=== PATIENT | female | born 1935 | race Caucasian/White ===

== ENCOUNTER 2017-09-15 11:40 | Inpatient (IN) | payer MEDICARE, OTHER ==
[2017-09-15] VITALS (7 sets, daily range): BP systolic 112–135; BP diastolic 66–87; PULSE 83–96; RESP 16–18; TEMP 97.1–97.6; O2SAT 94–96
[~2017-09-15] VITALS: Ht 165.1 cm; Wt 55.0 kg
[~2017-09-15 11:40] MED LIST: ALBU25IPRN INH; ASPI81TA82 PO; BUDE.5I NEB; CALCTAB32 OR; FIORIC; FLON0.053; FLUO20; GLUC500C3 OR; LABE200 PO; LEVA750T PO; LORA-474 PO; MOTI25CH PO; MULT-65 PO; PRED5PAK PO; TIOT18I; TYLE3 PO; VIT250TA PO; Z.0.OXYGENDME NC
[2017-09-15] MEDS ORDERED: DIPH1TAB4 PO (12:15)
[2017-09-15] MEDS ORDERED: LABE200T2 PO (12:15)
[2017-09-15] MEDS ORDERED: PRIL20TA2 PO (12:15)
[2017-09-15] MEDS ORDERED: MULTTAB67 PO (12:15)
[2017-09-15] MEDS ORDERED: MECL-62 PO (12:15)
[2017-09-15] MEDS ORDERED: ASCO100029 PO (12:15)
[2017-09-15] MEDS ORDERED: FLUT1SPR5 EACH NARE (12:15)
[2017-09-15] MEDS ORDERED: [UNRECOGNIZED DRUG - CODE] PO (12:15)
[2017-09-15] MEDS ORDERED: ASPI81TA16 PO (12:15)
[2017-09-15] MEDS ORDERED: BUDE0.5S NEB (12:15)
[2017-09-15] MEDS ORDERED: SODIUM CHLORIDE 0.9% FLUSH 10 ML FLUSH IVF PRN (12:15)
[2017-09-15] MEDS ORDERED: PROZ20CA11 PO (12:15)
[2017-09-15] MEDS ORDERED: IPRASOL NEB (12:15)
[2017-09-15] MEDS ORDERED: TH C600T4 PO (12:15)
[2017-09-15] MEDS ORDERED: CALCTAB38 PO (12:17)
[2017-09-15 12:37] LABS: AUTOMATED NEUTROPHIL # 6.2 TH/MM3 (1.8-7.7); BASOPHIL % 0.3 % (0.0-2.0); EOSINOPHIL # 0.2 TH/MM3 (0-0.4); EOSINOPHIL % 2.2 % (0.0-4.0); HEMATOCRIT 34.9 % (35.0-46.0); HEMOGLOBIN 11.7 GM/DL (11.6-15.3); LYMPH % 14.1 % (9.0-44.0); LYMPHOCYTE # 1.2 TH/MM3 (1.0-4.8); MEAN CELL VOLUME 100.6 FL (80.0-100.0); MEAN CORPUSCULAR HEMOGLOBIN 33.7 PG (27.0-34.0); MEAN CORPUSCULAR HGB CONC 33.5 % (32.0-36.0); MEAN PLATELET VOLUME 7.6 FL (7.0-11.0); MONO % 7.1 % (0.0-8.0); MONOCYTE # 0.6 TH/MM3 (0-0.9); NEUT % 76.3 % (16.0-70.0); PLATELET COUNT 219 TH/MM3 (150-450); RED BLOOD COUNT 3.47 MIL/MM3 (4.00-5.30); RED CELL DISTRIBUTION WIDTH 13.1 % (11.6-17.2); WHITE BLOOD COUNT 8.2 TH/MM3 (4.0-11.0)
[2017-09-15 12:44] LABS: INTERNATIONAL NORMALIZED RATIO 1.1 RATIO; PROTHROMBIN TIME - PATIENT 11.3 SEC (9.8-11.6)
--- NOTE | 2017-09-15 12:46 | RADRPT ---
EXAM DATE: 09/15/2017 12:41 PM EDT AGE/SEX: 82 years / Female INDICATIONS: Fell on right side today, pain right chest, pelvis and femur CLINICAL DATA: This is the patient's initial encounter. Patient reports that signs and symptoms have been present for 1 day and indicates a pain score of 10/10. MEDICAL/SURGICAL HISTORY: Chronic obstructive pulmonary disease. Emphysema. Cardiovascular di sease. AAA, hypertension Hysterectomy. Tonsillectomy. COMPARISON: No prior exams available for comparison. FINDINGS: There is no focal consolidation or effusion. No pneumothorax. Tortuous aorta. Heart size is within no rmal limits. CONCLUSION: No active disease. Electronically signed by: Misael Pérez MD 09/15/2017 12:45 PM EDT
--- NOTE | 2017-09-15 12:47 | RADRPT ---
EXAM DATE: 09/15/2017 12:44 PM EDT AGE/SEX: 82 years / Female INDICATIONS: Fell onto right side today, pain right pelvis, hip and femur CLINICAL DATA: This is the patient's initial encounter. Patient reports that signs and symptoms have been present for 1 day and indicates a pain score of 10/10. MEDICAL/SURGICAL HISTORY: Chronic obstructive pulmonary disease. Emphysema. Cardiovascular di sease. AAA Hysterectomy. Tonsillectomy. COMPARISON: No prior exams available for comparison. FINDINGS: There is a subcapital fracture of the proximal right femur with displacement by over half shaft width . There is mild to moderate osteoarthritis of both hip joints. Bones appear osteopenic. No other frac tures identified. CONCLUSION: Displaced subcapital fracture proximal right femur. Electronically signed by: Misael Pérez MD 09/15/2017 12:46 PM EDT
--- NOTE | 2017-09-15 13:00 | RADRPT ---
EXAM DATE: 09/15/2017 12:48 PM EDT AGE/SEX: 82 years / Female INDICATIONS: Fell onto right side today, pain right hip and femur CLINICAL DATA: This is the patient's initial encounter. Patient reports that signs and symptoms have been present for 1 day and indicates a pain score of 10/10. MEDICAL/SURGICAL HISTORY: Chronic obstructive pulmonary disease. Emphysema. Cardiovascular di sease. AAA Hysterectomy. Tonsillectomy. COMPARISON: No prior [facility] exams available for comparison. FINDINGS: 4 views of the right femur demonstrate a displaced subcapital right femoral neck fracture with approx imately 15 mm of superior/proximal displacement of the distal fragment. Remainder of the femur demons trates no fracture. Bones appear mildly under mineralized. Right hip joint demonstrates mild osteoart hritis. No soft tissue abnormality or radiopaque foreign body is seen. CONCLUSION: There is a displaced subcapital right femoral neck fracture with 15 mm of superior displacement of th e distal fragment. Electronically signed by: Victor Hugo Camarillo MD 09/15/2017 12:58 PM EDT
[2017-09-15 13:02] LABS: ALBUMIN 3.3 GM/DL (3.4-5.0); ALT (GPT) 24 U/L (10-53); AST (GOT) 19 U/L (15-37); BICARBONATE 34.2 MEQ/L (21.0-32.0); BLOOD UREA NITROGEN 10 MG/DL (7-18); CHLORIDE 98 MEQ/L (98-107); CREATININE 0.77 MG/DL (0.50-1.00); GLOMERULAR FILTRATION RATE 72 ML/MIN (>89); GLUCOSE,RANDOM 117 MG/DL (74-106); SODIUM (NA) 139 MEQ/L (136-145)
[2017-09-15 13:04] LABS: ALKALINE PHOSPHATASE 107 U/L (45-117); TOTAL BILIRUBIN ADULT 0.3 MG/DL (0.2-1.0); TOTAL PROTEIN 6.3 GM/DL (6.4-8.2)
--- NOTE | 2017-09-15 13:35 | RADRPT ---
EXAM DATE: 09/15/2017 1:32 PM EDT AGE/SEX: 82 years / Female INDICATIONS: Syncopal episode. CLINICAL DATA: This is the patient's initial encounter. Patient reports that signs and symptoms have been present for 1 day and indicates a pain score of 1/10. MEDICAL/SURGICAL HISTORY: Cardiovascular disease. Chronic obstructive pulmonary disease. Hyperten magdalene. Hysterectomy. RADIATION DOSE: 35.60 CTDI (mGy) COMPARISON: No prior [facility] exams available for comparison. TECHNIQUE: CT of the head without contrast. Using automated exposure control and adjustment of the mA and/or kV according to patient size, radiation dose was kept as low as reasonably achievable to ob tain optimal diagnostic quality images. FINDINGS: Cerebrum: Old basal ganglia lacunar infarcts greater on the left. There is a low attenuation through out the periventricular white matter. The ventricles are normal for age. No evidence of midline shif t, mass lesion, hemorrhage or acute infarction. No extraaxial fluid collections are seen. Posterior Fossa: The cerebellum and brainstem are intact. The 4th ventricle is midline. The cerebe llopontine angle is unremarkable. Extracranial: The visualized portion of the orbits is intact. Skull: The calvaria is intact. No evidence of skull fracture. CONCLUSION: 1. 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 2. Chronic ischemic small vessel vasculopathy. Electronically signed by: Joe Rasmussen MD 09/15/2017 1:34 PM EDT
--- NOTE | 2017-09-15 13:45 | HHI.HP ---
[facility] Service Family Medicine Primary Care Physician Debbi Rodriguez MD Admission Diagnosis Right hip fracture Diagnoses: International Travel<30 Days: No Contact w/Intl Traveler<30days: No Known Affected Area: No History of Present Illness Patient is a 82-year-old female with a past medical history of hypertension and COPD on home oxygen at 3 L/min and Mnire's disease who presented to the emergency department after a fall complaining of right hip pain. En route to the emergency department, EVAC gave her breathing treatments and steroids because she was not moving air well. In the emergency department, x-ray showed right hip fracture. This morning, patient was washing her hair and went to dry it off with a towel over her head and she had a mechanical fall. She denies any syncope, chest pain , shortness of breath, palpitations, racing heart, dizziness, presyncope, nausea , vomiting, diarrhea, orthostatic dizziness, tunnel vision, diaphoresis prior to the fall. She denies hitting her head. She denies any loss of consciousness. She fell on her right hip. She reports immediate right hip pain after the fall. She reports SOB all the time, dizziness with standing, walking all the time. (Marcial Bryson MD R2) Review of Systems Other Denies fever or chills No polyuria, polydipsia Denies vision changes, eye pain, hearing changes, rhinorrhea, sore throat Denies sore throat, runny nose, new cough. She has coughing fits every night. No chest pain, palpitations. She has shortness of breath at baseline. No abdominal pain Denies constipation, diarrhea, nausea, vomiting, black or bloody stools No dysuria, hematuria Besides the right hip pain, she denies muscle/joint pain, weakness, headache No rashes, itching (Marcial Bryson MD R2) Past Family Social History Past Medical History Anxiety, tobacco use, migraine, Mnire's, hypertension, aortic aneurysm, COPD, chronic bronchitis, emphysema, osteoarthritis Health maintenance: Colonoscopy 2013, Pap smear 2013, lipids 2013, occult blood screen 2013, DEXA bone density scan 2013, mammography 2013 Past Surgical History Cataract surgery-bilateral Vaginal cyst removal Hand surgery Hysterectomy, partial Tonsillectomy and adenoidectomy Reported Medications Reported Meds & Active Scripts Active Reported Calcium 600+D (Calcium Carbonate-Vitamin D) 600-400 Mg-Unit Tab 2 Tab PO BID Vivarin (Caffeine) 200 Mg Tab 200 Mg PO DAILY PRN Vitamin C (Ascorbic Acid) 1,000 Mg Tablet.er 1,000 Mg PO DAILY Sleep Aid (Diphenhydramine HCl (Sleep)) Unknown Strength Tab 1 Tab PO HS Prilosec (Omeprazole Magnesium) 20 Mg Tab 20 Mg PO BID Take 1 tablet in the am and noon Multiple Vitamin 1 Tab 1 Tab PO DAILY Aspirin Adult Low Strength (Aspirin) 81 Mg Tabdr 81 Mg PO DAILY Prozac (Fluoxetine HCl) 20 Mg Cap 20 Mg PO DAILY Meclizine (Meclizine HCl) 25 Mg Tab 25 Mg PO TID PRN Labetalol (Labetalol HCl) 200 Mg Tab 100 Mg PO BID Flonase Nasal [place] (Fluticasone Nasal [place]) 50 Mcg/Act [place] 2 Spr EACH NARE BID Duoneb (Ipratropium-Albuterol Neb) 0.5-2.5 Mg/3 Ml Neb 3 Ml NEB Q8HR Budesonide Neb 0.5 Mg/2 Ml Neb 0.5 Mg NEB Q12HR NEB (Marcial Bryson MD R2) Allergies: Coded Allergies: No Known Allergies (Verified Allergy, Unknown, 09/15/17) chlorthalidone (Verified Adverse Reaction, Mild, 09/15/17) Vomiting Uncoded Allergies: diuretics (Allergy, Unknown, 09/15/17) Tongue swelling Active Ordered Medications Current Medications Medications (Trade) Dose Ordered Sig/Nitza Route Start Time Stop Time Status Last Admin (NS Flush) 2 ml UNSCH PRN IVF 09/15/17 12:15 Lactated Ringer's 1,000 ml @ 100 mls/hr Q10H IV 09/15/17 14:16 UNV (NS Flush) 2 ml UNSCH PRN IV FLUSH 09/15/17 14:30 UNV (NS Flush) 2 ml BID IV FLUSH 09/15/17 21:00 UNV (Durant 5-325 Mg) 1 tab Q4H PRN PO 09/15/17 14:30 UNV (Morphine Inj) 5 mg Q2H PRN IV PUSH 09/15/17 14:30 UNV (Tylenol) 650 mg Q4H PRN PO 09/15/17 14:30 UNV (Colace) 100 mg BID PO 09/15/17 21:00 UNV (Milk Of Magnesia Liq) 30 ml Q6H PRN PO 09/15/17 14:30 UNV (Narcan Inj) 0.4 mg UNSCH PRN IV PUSH 09/15/17 14:30 UNV Lactated Ringer's 1,000 ml @ 999 mls/hr BOLUS ONCE IV 09/15/17 14:30 09/15/17 15:30 UNV (Duoneb Neb) 1 ampule Q4HR NEB INH 09/15/17 16:00 UNV (Albuterol Neb) 2.5 mg Q2HR NEB PRN INH 09/15/17 14:30 UNV (Deltasone) 40 mg DAILY PO 09/16/17 09:00 UNV (Ecotrin Ec) 81 mg DAILY PO 09/16/17 09:00 UNV (Pulmicort Respule Neb) 0.5 mg Q12HR NEB NEB 09/15/17 20:00 UNV (PROzac) 20 mg DAILY PO 09/16/17 09:00 UNV (Trandate) 100 mg BID PO 09/15/17 21:00 UNV (Antivert) 25 mg TID PRN PO 09/15/17 14:30 UNV Non-Formulary Medication 1,000 mg DAILY PO 09/16/17 09:00 UNV Non-Formulary Medication 200 mg DAILY PRN PO 09/15/17 14:30 UNV Non-Formulary Medication 2 tab BID PO 09/15/17 21:00 UNV Non-Formulary Medication 1 tab HS PO 09/15/17 21:00 UNV Non-Formulary Medication 2 spr BID EACH NARE 09/15/17 21:00 UNV Non-Formulary Medication 1 tab DAILY PO 09/16/17 09:00 UNV Non-Formulary Medication 20 mg BID PO 09/15/17 21:00 UNV Family History Has a daughter who is alive, in her 50s, has bipolar and arthritis Has another daughter, alive, in her late 40s with history of PSVT Son, alive, in his 50s, bipolar Aunt with colon cancer Uncle with leukemia Father at age 66 of [place], also had arthritis Mother at 39 years old of breast cancer Social History , not working, denies alcohol use. Current every day smoker. Has smoked for more than 50 years. One pack per day. Has cut back to 4-6 cigarettes per day. (Marcial Bryson MD R2) Physical Exam Vital Signs Vital Signs Date Time Temp Pulse Resp B/P (MAP) Pulse Ox O2 Delivery O2 Flow Rate FiO2 09/15/17 12:14 94 Nasal Cannula 6.00 09/15/17 11:46 97.4 91 16 112/79 (90) 94 09/15/17 11:45 94 Nasal Cannula 4.00 Physical Exam GENERAL: This is a thin, elderly female patient, lying in bed in no apparent distress. SKIN: No rashes, ecchymoses or lesions. Cool and dry. + Skin tenting. HEAD: Atraumatic. Normocephalic. EYES: Bilateral arcus senilis. Pupils equal round and reactive. Extraocular motions intact. No scleral icterus. No injection or drainage. ENT: Dry mucous membranes. Nose without bleeding, purulent drainage or septal hematoma. Throat without erythema, tonsillar hypertrophy or exudate. Uvula midline. Airway patent. NECK: Trachea midline. No JVD or lymphadenopathy. Supple, nontender, no meningeal signs. CARDIOVASCULAR: Regular rate and rhythm without murmurs, gallops, or rubs. RESPIRATORY: Decreased breath sounds at the bases with poor air movement bilaterally. Expiratory wheezing in the upper lung arnett. No rales. GASTROINTESTINAL: Abdomen firm, non-tender, nondistended. No rebounding or localized guarding. MUSCULOSKELETAL: Right leg shortened and externally rotated, propped up by a pillow under the knee. 3 second capillary refill distal to injury. Motor and sensation intact. Patient reports slightly more sensation in the left lower leg than the right lower leg. Sensation equal bilaterally at the thighs. Extremities without clubbing, cyanosis, or edema. Except for the right hip, no joint tenderness, effusion, or edema noted. No calf tenderness. NEUROLOGICAL: Awake and alert. Cranial nerves II through XII grossly intact. Motor and sensory grossly within normal limits. Normal speech. Laboratory Laboratory Tests Test 09/15/17 12:15 White Blood Count 8.2 Red Blood Count 3.47 Hemoglobin 11.7 Hematocrit 34.9 Mean Corpuscular Volume 100.6 Mean Corpuscular Hemoglobin 33.7 Mean Corpuscular Hemoglobin Concent 33.5 Red Cell Distribution Width 13.1 Platelet Count 219 Mean Platelet Volume 7.6 Neutrophils (%) (Auto) 76.3 Lymphocytes (%) (Auto) 14.1 Monocytes (%) (Auto) 7.1 Eosinophils (%) (Auto) 2.2 Basophils (%) (Auto) 0.3 Neutrophils # (Auto) 6.2 Lymphocytes # (Auto) 1.2 Monocytes # (Auto) 0.6 Eosinophils # (Auto) 0.2 Basophils # (Auto) 0.0 CBC Comment DIFF FINAL Differential Comment Prothrombin Time 11.3 Prothromb Time International Ratio 1.1 Activated Partial Thromboplast Time 22.4 Blood Urea Nitrogen 10 Creatinine 0.77 Random Glucose 117 Total Protein 6.3 Albumin 3.3 Calcium Level 9.0 Alkaline Phosphatase 107 Aspartate Amino Transf (AST/SGOT) 19 Alanine Aminotransferase (ALT/SGPT) 24 Total Bilirubin 0.3 Sodium Level 139 Potassium Level 4.4 Chloride Level 98 Carbon Dioxide Level 34.2 Anion Gap 7 Estimat Glomerular Filtration Rate 72 (Marcial Bryson MD R2) Result Diagram: 09/15/17 1215 09/15/17 1215 Imaging Last Impressions Pelvis X-Ray 09/15/17 1202 Signed Impressions: CONCLUSION: Displaced subcapital fracture proximal right femur. Femur X-Ray 09/15/17 1202 Signed Impressions: CONCLUSION: There is a displaced subcapital right femoral neck fracture with 15 mm of super ior displacement of the distal fragment. Chest X-Ray 09/15/17 1202 Signed Impressions: CONCLUSION: No active disease. Head CT 09/15/17 0000 Signed Impressions: CONCLUSION: 1. 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 2. Chronic ischemic small vessel vasculopathy. Course In the emergency department, patient had CT brain without IV contrast, n.p.o., pelvis x-ray, femur x-ray, chest x-ray, type and screen, UA, APTT, PT/INR, CMP, CBC, EKG, admission order, orthopedic consult. (Marcial Bryson MD R2) Caprini VTE Risk Assessment Caprini VTE Risk Assessment: Mod/High Risk (score >= 2) VTE Pharm Contraindication: Active bleeding Caprini Risk Assessment Model Point Value = 1 Point Value = 2 Point Value = 3 Point Value = 5 Age 41-60 Minor surgery BMI > 25 kg/m2 Swollen legs Varicose veins or History of unexplained or recurrent spontaneous Oral contraceptives or hormone replacement Sepsis (< 1 month) Serious lung disease, including pneumonia (< 1 month) Abnormal pulmonary function Acute myocardial infarction Congestive heart failure (< 1 month) History of inflammatory bowel disease Medical patient at bed rest Age 61-74 Arthroscopic surgery Major open surgery (> 45 min) Laparoscopic surgery (> 45 min) Malignancy Confined to bed (> 72 hours) Immobilizing plaster cast Central venous access Age >= 75 History of VTE Family history of VTE Factor V Leiden Prothrombin [id number] Lupus anticoagulant Anticardiolipin antibodies Elevated serum homocysteine Heparin-induced thrombocytopenia Other congenital or acquired thrombophilia Stroke (< 1 month) Elective arthroplasty Hip, pelvis, or leg fracture Acute spinal cord injury (< 1 month) Prophylaxis Regimen Total Risk Factor Score Risk Level Prophylaxis Regimen 0-1 Low Early ambulation 2 Moderate Order ONE of the following: *Sequential Compression Device (SCD) *Heparin 5000 units SQ BID 3-4 Higher Order ONE of the following medications: *Heparin 5000 units SQ TID *Enoxaparin/Lovenox 40 mg SQ daily (WT < 150 kg, CrCl > 30 mL/min) *Enoxaparin/Lovenox 30 mg SQ daily (WT < 150 kg, CrCl > 10-29 mL/min) *Enoxaparin/Lovenox 30 mg SQ BID (WT < 150 kg, CrCl > 30 mL/min) AND/OR *Sequential Compression Device (SCD) 5 or more Highest Order ONE of the following medications: *Heparin 5000 units SQ TID (Preferred with Epidurals) *Enoxaparin/Lovenox 40 mg SQ daily (WT < 150 kg, CrCl > 30 mL/min) *Enoxaparin/Lovenox 30 mg SQ daily (WT < 150 kg, CrCl > 10-29 mL/min) *Enoxaparin/Lovenox 30 mg SQ BID (WT < 150 kg, CrCl > 30 mL/min) AND *Sequential Compression Device (SCD) (Marcial Bryson MD R2) Assessment and Plan Assessment and Plan Patient is a 82-year-old female with a past medical history of hypertension and COPD on home oxygen at 3 L/min and Mnire's disease who presented to the emergency department after a fall complaining of right hip pain; x-ray showed right hip fracture. Plan to it admit for open reduction internal fixation in the operating room, pain control. Code Status DNR (Marcial Bryson MD R2) Attending Attestation Patient seen and examined, discussed with resident team. I agree with assessment and management as documented and discussed with me. The patient has been seen and examined. The chart and all resident notes have been reviewed. I agree that inpatient care is appropriate and that a two midnight stay is expected for the reasons documented in the resident history and physical. I have discussed this with the resident and certify the resident s order for inpatient admission. Indigo Wade is a 82yo lady with Meniere's disease admitted for Right hip fracture sustained from a mechanical fall. She denies hitting her head, LOC. She reports pain is well-controlled at the time of my exam. In regards to her COPD, she was found to be wheezing in the ER, and COPD exacerbation was treated. Of note, she has oxygen-dependent COPD (3 lpm by nasal cannula), and has not needed any increased oxygen supplementation lately. Appreciate ortho; anticipate ORIF tonight or in the morning. (Judy Oconnor MD) Problem List: (1) Closed right hip fracture ICD Codes: S72.001A - Fracture of unspecified part of neck of right femur, initial encounter for closed fracture Status: Acute Plan: -Consult orthopedic surgery -N.p.o. and maintenance fluids with LR IV while n.p.o. -Labs and EKG already done -Hold home aspirin, SCDs instead of anticoagulation -Durant for pain 1-5, morphine for pain 6-10, morphine for breakthrough pain -Monitor vital signs -Romero's traction splint (2) COPD with acute exacerbation ICD Codes: J44.1 - COPD with acute exacerbation Status: Acute Plan: -Duo nebs every 4 hours -Albuterol neb every 2 hours as needed for shortness of breath -Patient received IV steroids en route, prednisone 40 mg p.o. daily starting tomorrow -Titrate oxygen as needed to keep pulse ox over 88% but under 94% -Monitor pulse ox (3) Dehydration ICD Codes: E86.0 - Dehydration Plan: Patient with dry mucous membranes and skin tenting on exam. -LR IV bolus (4) Macrocytic anemia ICD Codes: D53.9 - Nutritional anemia, unspecified Plan: Hemoglobin 11.7. MCV over 100. -Check B12 and folate (5) COPD (chronic obstructive pulmonary disease) ICD Codes: J44.9 - Chronic obstructive pulmonary disease, unspecified Status: Acute Plan: -Continue home medication of budesonide/Pulmicort neb every 12 hours (6) Hypertension ICD Codes: I10 - Hypertension Status: Acute Plan: -Continue home medication of labetalol 100 mg p.o. twice daily (7) Anxiety ICD Codes: F41.9 - Anxiety Status: Acute (8) Depression ICD Codes: F32.9 - Major depressive disorder, single episode, unspecified (9) Dizziness ICD Codes: R42 - Dizziness and giddiness Plan: -Continue home medication of meclizine as needed (10) Contraindication to anticoagulation therapy ICD Codes: Z53.09 - Procedure and treatment not carried out because of other contraindication Plan: Patient status post hip fracture with plan to go to the OR. Thus, chemical anticoagulant is contraindicated. -SCDs (11) Nutrition, metabolism, and development symptoms ICD Codes: R63.8 - Other symptoms and signs concerning food and fluid intake Plan: Fluids: LR IV maintenance fluids while n.p.o. Electrolyte: Monitor and replete Nutrition: N.p.o. until surgery, then advance diet as tolerated GI prophylaxis: Continue home medication of omeprazole 20 mg p.o. twice daily (Marcial Bryson MD R2) Physician Certification 2 Midnight Certification Type: Admission for Inpatient Services Order for Inpatient Services The services are ordered in accordance with Medicare regulations or non- Medicare payer requirements, as applicable. In the case of services not specified as inpatient-only, they are appropriately provided as inpatient services in accordance with the 2-midnight benchmark. Estimated LOS (days): 2 2 days is the estimated time the patient will need to remain in the hospital, assuming treatment plan goals are met and no additional complications. Post-Hospital Plan: Not yet determined (Marcial Bryson MD R2) Marcial Bryson MD R2 September 15, 2017 13:45 Judy Oconnor MD September 15, 2017 20:35
--- NOTE | 2017-09-15 13:53 | PD ---
HPI Chief Complaint: Fall Time Seen by Provider: 11:52 Travel History International Travel<30 days: No Contact w/Intl Traveler<30days: No Traveled to known affect area: No History of Present Illness HPI Is an 82-year-old woman who presents to the emergency department after a fall. She reportedly was washing her hair in the sink when she lost balance and fell over. She has severe right hip pain. Worse with any movement. Initially reported positive loss of consciousness, she reports she does not think she lost consciousness but it seems a little bit unclear. Does not recall getting syncopal or lightheaded. Not clear what made her fall. In route EMS reports she had decreased breath sounds and mild hypoxia and she was given Solu-Medrol and multiple breathing treatments. She was also given morphine for pain. Pain has been constant, severe, worse with any movement no other aggravating or alleviating factors. No radiation. History Past Medical History Narrative Medical COPD Hypertension Social History Alcohol Use: No Tobacco Use: Yes (5 CIGS PER DAY) Allergies-Medications (Allergen,Severity, Reaction): Coded Allergies: No Known Allergies (Verified Adverse Reaction, Unknown, 09/15/17) Reported Meds & Prescriptions Reported Meds & Active Scripts Active Reported Calcium 600+D (Calcium Carbonate-Vitamin D) 600-400 Mg-Unit Tab 2 Tab PO BID Vivarin (Caffeine) 200 Mg Tab 200 Mg PO DAILY PRN Vitamin C (Ascorbic Acid) 1,000 Mg Tablet.er 1,000 Mg PO DAILY Sleep Aid (Diphenhydramine HCl (Sleep)) Unknown Strength Tab 1 Tab PO HS Prilosec (Omeprazole Magnesium) 20 Mg Tab 20 Mg PO BID Take 1 tablet in the am and noon Multiple Vitamin 1 Tab 1 Tab PO DAILY Aspirin Adult Low Strength (Aspirin) 81 Mg Tabdr 81 Mg PO DAILY Prozac (Fluoxetine HCl) 20 Mg Cap 20 Mg PO DAILY Meclizine (Meclizine HCl) 25 Mg Tab 25 Mg PO TID PRN Labetalol (Labetalol HCl) 200 Mg Tab 100 Mg PO BID Flonase Nasal [place] (Fluticasone Nasal [place]) 50 Mcg/Act [place] 2 Spr EACH NARE BID Duoneb (Ipratropium-Albuterol Neb) 0.5-2.5 Mg/3 Ml Neb 3 Ml NEB Q8HR Budesonide Neb 0.5 Mg/2 Ml Neb 0.5 Mg NEB Q12HR NEB Review of Systems Except as stated in HPI: all other systems reviewed are Neg Physical Exam Narrative GENERAL: Frail 82-year-old woman, nontoxic, uncomfortable appearing. SKIN: Focused skin assessment warm/dry. HEAD: Atraumatic. Normocephalic. EYES: Pupils equal and round. No scleral icterus. No injection or drainage. ENT: No nasal bleeding or discharge. Mucous membranes pink and moist. NECK: Trachea midline. No JVD. CARDIOVASCULAR: Regular rate and rhythm. No murmur appreciated. RESPIRATORY: No accessory muscle use. Clear to auscultation. Breath sounds equal bilaterally. GASTROINTESTINAL: Abdomen soft, non-tender, nondistended. Hepatic and splenic margins not palpable. MUSCULOSKELETAL: Right hip is held slightly externally rotated and slightly flexed. Right leg is a little bit shortened. NEUROLOGICAL: Awake and alert. No obvious cranial nerve deficits. Motor grossly within normal limits. Normal speech. PSYCHIATRIC: Appropriate mood and affect; insight and judgment normal. Data Data Last Documented VS Vital Signs Date Time Temp Pulse Resp B/P (MAP) Pulse Ox O2 Delivery O2 Flow Rate FiO2 09/15/17 12:14 94 Nasal Cannula 6.00 09/15/17 11:46 97.4 91 16 112/79 (90) Orders Orders Electrocardiogram (09/15/17 12:02) Complete Blood Count With Diff (09/15/17 12:02) Comprehensive Metabolic Panel (09/15/17 12:02) Prothrombin Time / Inr (Pt) (09/15/17 12:02) Act Partial Throm Time (Ptt) (09/15/17 12:02) Urinalysis - C+S If Indicated (09/15/17 12:02) Type And Screen (09/15/17 12:02) Chest, Single Ap (09/15/17 12:02) Femur (Ap & Lat/2vws) (09/15/17 12:02) Pelvis, Ap Only (Routine) (09/15/17 12:02) Iv Access Insert/Monitor (09/15/17 12:02) Oximetry (09/15/17 12:02) Ecg Monitoring (09/15/17 12:02) Sodium Chloride 0.9% Flush (Ns Flush) (09/15/17 12:15) Diet Npo (09/15/17 Lunch) Ct Brain W/O Iv Contrast(Rout) (09/15/17 ) Labs Laboratory Tests Test 09/15/17 12:15 White Blood Count 8.2 TH/MM3 Red Blood Count 3.47 MIL/MM3 Hemoglobin 11.7 GM/DL Hematocrit 34.9 % Mean Corpuscular Volume 100.6 FL Mean Corpuscular Hemoglobin 33.7 PG Mean Corpuscular Hemoglobin Concent 33.5 % Red Cell Distribution Width 13.1 % Platelet Count 219 TH/MM3 Mean Platelet Volume 7.6 FL Neutrophils (%) (Auto) 76.3 % Lymphocytes (%) (Auto) 14.1 % Monocytes (%) (Auto) 7.1 % Eosinophils (%) (Auto) 2.2 % Basophils (%) (Auto) 0.3 % Neutrophils # (Auto) 6.2 TH/MM3 Lymphocytes # (Auto) 1.2 TH/MM3 Monocytes # (Auto) 0.6 TH/MM3 Eosinophils # (Auto) 0.2 TH/MM3 Basophils # (Auto) 0.0 TH/MM3 CBC Comment DIFF FINAL Differential Comment Prothrombin Time 11.3 SEC Prothromb Time International Ratio 1.1 RATIO Activated Partial Thromboplast Time 22.4 SEC Blood Urea Nitrogen 10 MG/DL Creatinine 0.77 MG/DL Random Glucose 117 MG/DL Total Protein 6.3 GM/DL Albumin 3.3 GM/DL Calcium Level 9.0 MG/DL Alkaline Phosphatase 107 U/L Aspartate Amino Transf (AST/SGOT) 19 U/L Alanine Aminotransferase (ALT/SGPT) 24 U/L Total Bilirubin 0.3 MG/DL Sodium Level 139 MEQ/L Potassium Level 4.4 MEQ/L Chloride Level 98 MEQ/L Carbon Dioxide Level 34.2 MEQ/L Anion Gap 7 MEQ/L Estimat Glomerular Filtration Rate 72 ML/MIN [facility] Medical Decision Making Medical Screen Exam Complete: Yes Emergency Medical Condition: Yes Interpretation(s) My review of EKG: Normal sinus rhythm at a rate of 90 ischemia. X-rays right hip, right femur: Displaced right femoral neck fracture CT head negative for bleed Labs: CBC is unremarkable CMP of low protein Coags unremarkable Chest x-ray negative Differential Diagnosis Fracture, dislocation, femur fracture, other Narrative Course Medical decision making 82-year-old woman, right hip fracture, significant COPD, spoke with the family medicine admitting service, they will admit patient. Please consult orthopedics and phone call placed as well. Diagnosis Primary Impression: Closed right hip fracture Additional Impression: COPD (chronic obstructive pulmonary disease) Admitting Information Admitting Physician Requests: it Velasquez Peck MD September 15, 2017 13:53
[2017-09-15] MEDS ORDERED: MAGNESIUM HYDROXIDE SUSP 30 ML CUP PO PRN (14:30)
[2017-09-15] MEDS ORDERED: MORPHINE SULFATE 8 MG/ML INJ IV PUSH PRN ×2 (14:30→16:30)
[2017-09-15] MEDS ORDERED: RESP: ALBUTEROL 2.5 MG/3 ML NEB (PRN) INH (14:30)
[2017-09-15] MEDS ORDERED: NALOXONE HCL 0.4 MG/ML AMP IV PUSH PRN (14:30)
[2017-09-15] MEDS ORDERED: SODIUM CHLORIDE 0.9% FLUSH 10 ML FLUSH IV FLUSH PRN (14:30)
[2017-09-15] MEDS ORDERED: LACTATED RINGER'S 1000 ML INJ 1,000 ML IV ONE (14:30)
[2017-09-15] MEDS ORDERED: ACETAMINOPHEN 325 MG TAB PO PRN (14:30)
[2017-09-15] MEDS ORDERED: CAFFEINE 200 MG PO PRN (14:30)
[2017-09-15] MEDS ORDERED: MECLIZINE HCL 25 MG TAB PO PRN (14:30)
[2017-09-15] MEDS ORDERED: MORPHINE SULFATE 2 MG/ML SYRINGE IM PRN (15:00)
[2017-09-15] MEDS: ACETAMINOPHEN/HYDROcodone 325 MG/5 MG TAB PO PRN ×2 (16:16→20:13)
[2017-09-15] MEDS: RESP: ALBUTEROL 2.5 MG/IPRATROPIUM 0.5 MG NEB (SCH) INH ×2 (16:21→20:24)
[2017-09-15 18:00] LABS: FOLATE GREATER THAN 20.0 NG/ML (3.1-17.5)
[2017-09-15] MEDS: LACTATED RINGER'S 1000 ML INJ 1,000 ML IV SCH (18:07)
[2017-09-15] MEDS: DOCUSATE SODIUM 100 MG CAP PO SCH (20:13)
[2017-09-15] MEDS: diphenhydrAMINE HCL 25 MG CAP PO SCH (20:13)
[2017-09-15] MEDS: PANTOPRAZOLE SOD 20 MG DELAYED RELEASE TAB PO SCH (20:13)
[2017-09-15] MEDS: CALCIUM/VITAMIN D 250 MG/125 U TAB PO SCH (20:13)
[2017-09-15] MEDS: SODIUM CHLORIDE 0.9% FLUSH 10 ML FLUSH IV FLUSH SCH (20:14)
[2017-09-15] MEDS: RESP: BUDESONIDE 0.5 MG/2 ML NEB NEB SCH (20:24)
[2017-09-15] MEDS ORDERED: LABETALOL HCL 200 MG TAB PO SCH (21:00)
[2017-09-15] MEDS: FLUTICASONE PROPIONATE 50 MCG/ACT 16 GM NASAL SPRAY EACH NARE SCH (21:41)
[2017-09-15] MEDS: LABETALOL HCL 100 MG TAB PO SCH (21:41)
[2017-09-15] MEDS ORDERED: CHLORHEXIDINE GLUCONATE 2 % 1 PACK (2 CLOTHS) TOPICAL PRN (22:00)
[2017-09-15] MEDS ORDERED: SODIUM CHLORID 0.9% 500 ML IV PRN (22:00)
[2017-09-15] MEDS ORDERED: LACTATED RINGER'S 1000 ML IV PRN (22:00)
[2017-09-15] MEDS ORDERED: POVIDONE IODINE 5% (ANTISEPSIS KIT) 4 APPLICATIONS EACH NARE PRN (22:00)
[2017-09-16] VITALS (8 sets, daily range): BP systolic 115–163; BP diastolic 57–77; PULSE 84–92; RESP 18; TEMP 97.2–97.8; O2SAT 16–97
[2017-09-16] MEDS: RESP: ALBUTEROL 2.5 MG/IPRATROPIUM 0.5 MG NEB (SCH) INH ×6 (00:45→19:31)
[2017-09-16] MEDS: LACTATED RINGER'S 1000 ML INJ 1,000 ML IV SCH ×3 (02:42→20:02)
[2017-09-16] MEDS: ACETAMINOPHEN/HYDROcodone 325 MG/5 MG TAB PO PRN ×3 (05:08→19:59)
[2017-09-16] MEDS: LABETALOL HCL 100 MG TAB PO SCH ×2 (06:37→19:59)
--- NOTE | 2017-09-16 06:55 | PD.ORT.PN ---
Subjective Subjective Remarks Slip and fall at home after washing her hair. As she was drying her hair the towel fell slightly over her face and she lost her balance and fell backwards. She has right hip pain and is unable to ambulate. X-rays confirm subcapital fracture right hip. Objective Vitals Vital Signs Date Time Temp Pulse Resp B/P (MAP) Pulse Ox O2 Delivery O2 Flow Rate FiO2 09/16/17 06:08 18 09/16/17 04:00 97.8 84 18 137/75 (95) 95 09/16/17 03:13 96 Nasal Cannula 3.00 09/16/17 00:47 95 Nasal Cannula 3.00 09/16/17 00:15 97.7 88 18 115/57 (76) 96 09/15/17 21:50 Nasal Cannula 4.00 09/15/17 20:27 95 Nasal Cannula 3.00 09/15/17 19:55 97.6 83 18 117/66 (83) 94 09/15/17 16:00 97.1 94 18 135/87 (103) 94 09/15/17 15:02 97 112/73 (86) 96 Nasal Cannula 4.00 09/15/17 14:00 96 16 125/84 (98) 96 Nasal Cannula 6.00 09/15/17 12:14 94 Nasal Cannula 6.00 09/15/17 11:46 97.4 91 16 112/79 (90) 94 09/15/17 11:45 94 Nasal Cannula 4.00 I/O 09/15/17 09/15/17 09/15/17 09/16/17 09/16/17 09/16/17 07:00 15:00 23:00 07:00 15:00 23:00 Intake Total 1225 ml Balance 1225 ml Intake Oral 225 ml IV Total 1000 ml Bladder Scan Volume Amount 908 ml # Voids 0 # Bowel Movements 0 Result Diagram: 09/15/17 1215 09/15/17 1215 Other Results Laboratory Tests Test 09/15/17 12:15 Prothromb Time International Ratio 1.1 RATIO Prothrombin Time 11.3 SEC (9.8-11.6) Imaging Last 24 hours Impressions Pelvis X-Ray 09/15/17 1202 Signed Impressions: CONCLUSION: Displaced subcapital fracture proximal right femur. Femur X-Ray 09/15/17 1202 Signed Impressions: CONCLUSION: There is a displaced subcapital right femoral neck fracture with 15 mm of super ior displacement of the distal fragment. Chest X-Ray 09/15/17 1202 Signed Impressions: CONCLUSION: No active disease. Objective Remarks Bilateral upper extremity: Full range of motion neurovascularly intact Left lower extremity: Full range of motion neurovascularly intact Right lower extremity: Pain to palpation of hip. No pain with knee or ankle gentle range of motion. She is in Romero's traction. She has intact sensation distally with good capillary refills. Assessment & Plan Assessment and Plan Right subcapital femur fracture N.p.o. Surgery this morning with Dr. Hamilton for right hip hemiarthroplasty Sign consents Marcial Ness Jr. September 16, 2017 06:55
[2017-09-16] MEDS: predniSONE 20 MG TAB PO SCH (07:38)
[2017-09-16] MEDS: CALCIUM/VITAMIN D 250 MG/125 U TAB PO SCH ×2 (07:38→19:59)
[2017-09-16] MEDS: DOCUSATE SODIUM 100 MG CAP PO SCH ×2 (07:38→19:59)
[2017-09-16] MEDS: PANTOPRAZOLE SOD 20 MG DELAYED RELEASE TAB PO SCH ×2 (07:38→19:58)
[2017-09-16] MEDS: FLUTICASONE PROPIONATE 50 MCG/ACT 16 GM NASAL SPRAY EACH NARE SCH ×2 (07:38→20:00)
[2017-09-16] MEDS: SODIUM CHLORIDE 0.9% FLUSH 10 ML FLUSH IV FLUSH SCH ×2 (07:38→19:59)
[2017-09-16] MEDS: FLUoxetine HCL 20 MG CAP PO SCH (07:39)
[2017-09-16] MEDS: ASCORBIC ACID 500 MG TAB PO SCH (07:39)
[2017-09-16] MEDS: MULTIVITAMIN TAB PO SCH (07:39)
[2017-09-16] MEDS: RESP: BUDESONIDE 0.5 MG/2 ML NEB NEB SCH ×2 (07:53→19:31)
[2017-09-16] MEDS ORDERED: GENTAMICIN SULFATE 80 MG/2 ML VIAL ONE (08:13)
[2017-09-16] MEDS ORDERED: ceFAZolin INJ 1,000 MG VIAL ONE (08:13)
[2017-09-16] MEDS ORDERED: VANCOMYCIN HCL 1000 MG VIAL ONE (08:13)
[2017-09-16] MEDS ORDERED: TRANEXAMIC ACID INJ 825 MG in SODIUM CHLORIDE 0.9% INJ 100 ML IV ONE (08:30)
[2017-09-16] MEDS ORDERED: ASPIRIN EC 81 MG TABEC PO SCH (09:00)
--- NOTE | 2017-09-16 09:53 | MB ---
cc: Gael Hamilton MD DATE: 09/16/2017 REASON FOR CONSULTATION: Right femoral neck fracture. HISTORY OF PRESENT ILLNESS: Ms. Wade is an 82-year-old female who had a fall. She describes a mechanical fall. She states that she was washing her hair in the sink. She went to dry her hair. The towel temporarily covered her eyes. She lost her balance and fell. She landed on her right hip. She had immediate right hip pain. She was unable to stand or ambulate. She denies dizziness, syncope or loss of consciousness. She does recall the fall. She presented to the Emergency Room where x-rays revealed a displaced right hip fracture. She is currently awake and alert on the orthopedic floor. Her only complaint is her right hip. Pain is worse with movement and is improved with rest. PAST MEDICAL HISTORY: COPD and hypertension. ALLERGIES: NO KNOWN DRUG ALLERGIES. MEDICATIONS: Include calcium, ____, vitamin C, Prilosec, aspirin, Prozac, meclizine, labetalol, Flonase, DuoNeb. SOCIAL HISTORY: The patient denies alcohol or drug use. She smokes a few cigarettes a day. REVIEW OF SYSTEMS: The patient denies headache, visual changes, neck pain, chest pain, shortness of breath, abdominal pain, nausea, vomiting, recent weight loss, fever, chills, numbness or tingling of her extremities or recent weight loss. She complains of right hip pain. The pain is worse with movement. She states that she does have chronic intermittent shortness of breath. Currently, she is at baseline. FAMILY HISTORY: Noncontributory. LABORATORY DATA: The patient has a white blood cell count of 8.2, hematocrit of 34.9, platelet count of 219. INR is 1.1. BUN is 10 and potassium is 4.4. Vitamin D is 37.4. X-RAY STUDIES: X-rays of the right hip were reviewed. X-rays reveal a displaced right femoral neck fracture. PHYSICAL EXAMINATION: GENERAL: The patient is a pleasant 82-year-old female. She is awake and alert. She is alert and oriented x 3. She appears well-developed and well-nourished. VITAL SIGNS: Temperature 97.8, pulse 84, respirations 18, blood pressure 137/75, O2 saturation is 95% on 3 liters nasal cannula. HEENT: Head: The patient is normocephalic. Pupils are equal. NECK: Soft, nontender. The trachea is in the midline. ABDOMEN: Soft, nontender, and nondistended. EXTREMITIES: Examination of bilateral upper extremities reveals no pain with shoulder, elbow or wrist motion. She has intact sensation in all fingers. She has good cap refill in all fingers. Skin is intact. Examination of left leg reveals no pain with hip, knee or ankle motion. Skin is intact. Dorsalis pedis pulse is palpable. Sensation is intact. Examination of right leg reveals pain with any hip motion. Her right leg is shortened and externally rotated. Thigh and calf compartments are soft. She has no tenderness in her knee, tibia or ankle. Dorsalis pedis pulse is palpable. Sensation is intact. IMPRESSION: 1. Displaced right femoral neck fracture. 2. 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 3. Chronic obstructive pulmonary disease. 4. Hypertension. PLAN: Treatment options were discussed with the patient. At this point, I would recommend right hip hemiarthroplasty. The risks of surgery included bleeding, infection, injuries to arteries, nerves or blood vessels; nonunion, malunion, painful hardware, hip dislocation, leg length discrepancies as well as medical complications including blood clot, stroke, heart attack and . All questions were answered. I will plan on surgery today. A mid-level provider in my office, nurse practitioner or PA, may see this patient on a follow-up basis and continue to implement the objective of this plan including: Starting or adjusting medications, injections of muscle, tendon, bursa or joints, cast application, orthotic or brace application, physical therapy, further radiographic studies including x-ray, MRI, CT, ultrasounds or bone scan, vascular studies, neurologic studies, or other specialist consultations, and proceeding with surgical management as appropriate. Postoperatively, I will place the patient on calcium and vitamin D supplementation. I will also place her on appropriate DVT prophylaxis. MD AKASH Cordero/SHAGUFTA , 09:29 AM , 09:51 AM
--- NOTE | 2017-09-16 10:20 | PD.OP ---
cc: Gael Saleh MD Operative Report Date of Surgery: September 16, 2017 Preoperative Diagnosis: Displaced right femoral neck fracture Postoperative Diagnosis: Procedure: Right hip hemiarthroplasty Anesthesia: General Surgeon: Gael Saleh Figure Refinisher And Repairer(s): ALTHEA Mccollum PA-C The surgical procedure was assisted by my physician community assistant. My P.A. presence was necessary throughout this case for the manipulation and positioning of the surgical extremity. My P.A. was assisting me throughout the duration of this procedure. The skill set of a physician community assistant was medically necessary to complete this procedure. During the surgical case the surgical aides teacher was working at the back table and the physician community assistant was directly assisting me. Operation and Findings: PLAN OF ACTIVITY Weight bear as tolerated. IMPLANTS USED [place] Corail size 14 stem with size [50] bipolar head and [standard +1] neck. DETAILS OF PROCEDURE This patient was brought into the operating room and placed on the OR table. The patient was given anesthesia. The patient received IV antibiotics. The patient was then placed in lateral decubitus position. The hip and leg were prepped with alcohol, followed by Hibiclens and draped in a usual sterile fashion. Clean air was used for this procedure. Time out procedure was performed. The procedure began with a 5 inch incision over the posterolateral hip. The subcutaneous tissue was dissected with the Bovie. The iliotibial band were split in line with fibers. The Charnley retractor was placed. The piriformis and external rotators were released from the femur and tagged with a #1 Vicryl suture. The capsule is now incised and tagged with #1 Vicryl. The femoral neck fracture was now visualized. A corkscrew was now used to remove the femoral head. The femoral head was sized and measured. Soft tissue was now protected. The hip skid was placed underneath the femoral neck. An oscillating saw was used to make a femoral neck cut. At this point attention was turned to preparation of the proximal femur. A box osteotome was used to remove the lateral cortex of the femoral neck. The T- handle reamer was used to open the femoral canal. Next, the canal was broached. A lateralizing reamer was used to help lateralize the prosthesis. At this point a trial head and neck were placed. The hip was reduced. The patient was found to have excellent stability with good range of motion. Trial components were removed. Soft tissue and bone were thoroughly irrigated. A Corail stem was now opened. The stem was now impacted into the proximal femur. Care was taken to keep appropriate anteversion. The head and neck were now impacted onto the stem. The hip was again reduced. The hip was found to have good range of motion and good stability. Leg lengths were clinically equal. The wound was thoroughly irrigated. The capsule, piriformis and iliotibial band were closed with #1 Vicryl. Subcutaneous tissue was closed with 3-0 Vicryl. The skin was closed with stan. A sterile dressing was applied with Prim[place]. The patient was placed into a knee immobilizer. The patient was awakened and transferred to the recovery room in stable condition. Needle and sponge counts were correct. Gael Saleh MD September 16, 2017 10:20
[2017-09-16] MEDS ORDERED: DO NOT ADM ANY ANTICOAGULANT DRUGS PRN (10:37)
[2017-09-16] MEDS ORDERED: Post-op Orders (for Pharmacy) XX ONE (10:39)
[2017-09-16] MEDS ORDERED: ERGOCALCIFEROL (VIT D2) 50,000 UNIT CAP PO ONE (10:45)
--- NOTE | 2017-09-16 11:31 | RADRPT ---
EXAM DATE: 09/16/2017 11:25 AM EDT AGE/SEX: 82 years / Female INDICATIONS: Post op right hip surgery. CLINICAL DATA: This is the patient's initial encounter. Patient reports that signs and symptoms have been present for 1 day and indicates a pain score of Nonresponsive. MEDICAL/SURGICAL HISTORY: . Unresponsive. . Unresponsive. COMPARISON: No prior [place] exams available for comparison. FINDINGS: The patient is status post a total hip arthroplasty. Prosthesis is well-seated. Alignment is anatomic . A fracture is not appreciated. CONCLUSION: Anatomic alignment. Michel Mariano MD FACR Electronically signed by: Michel Mariano MD 09/16/2017 11:29 AM EDT
[2017-09-16] MEDS ORDERED: PHENYLEPH/NS 1000 MCG/10 ML SYR IV ONE (12:00)
[2017-09-16] MEDS ORDERED: PHENYLEPHRINE HCL 10 MG/ML VIAL IV ONE (12:00)
[2017-09-16] MEDS ORDERED: PROPOFOL 200 MG/20 ML AMP IV ONE (12:00)
[2017-09-16] MEDS ORDERED: ONDANSETRON HCL 4 MG/2 ML VIAL IV PUSH ONE (12:00)
--- NOTE | 2017-09-16 12:53 | HHI.FPPN ---
Subjective Remarks No acute issues overnight. Vitals are stable, patient remains afebrile. She underwent a right hip hemiarthroplasty this morning and denies any concerns or issues at thsi time. She denies any chest pain, shortness of breath, fever, chills, nausea or vomiting. (Gilda Doll MD R3) Objective Vitals Vital Signs Date Time Temp Pulse Resp B/P (MAP) Pulse Ox O2 Delivery O2 Flow Rate FiO2 09/16/17 12:29 97.8 91 163/77 (105) 16 09/16/17 12:29 Nasal Cannula 3.00 09/16/17 11:30 97.7 90 23 126/69 (88) 96 Nasal Cannula 3 09/16/17 11:15 89 29 122/64 (83) 95 09/16/17 11:00 87 28 93/62 (72) 98 09/16/17 10:45 86 24 92/58 (69) 100 09/16/17 10:44 86 20 89/54 (66) 98 09/16/17 10:40 85 19 86/56 (66) 100 Nasal Cannula 3 09/16/17 10:36 97.7 84 22 90/53 (65) 96 Simple Mask 6 09/16/17 06:08 18 09/16/17 04:00 97.8 84 18 137/75 (95) 95 09/16/17 03:13 96 Nasal Cannula 3.00 09/16/17 00:47 95 Nasal Cannula 3.00 09/16/17 00:15 97.7 88 18 115/57 (76) 96 09/15/17 21:50 Nasal Cannula 4.00 09/15/17 20:27 95 Nasal Cannula 3.00 09/15/17 19:55 97.6 83 18 117/66 (83) 94 09/15/17 16:00 97.1 94 18 135/87 (103) 94 09/15/17 15:02 97 112/73 (86) 96 Nasal Cannula 4.00 09/15/17 14:00 96 16 125/84 (98) 96 Nasal Cannula 6.00 I/O 09/15/17 09/15/17 09/15/17 09/16/17 09/16/17 09/16/17 07:00 15:00 23:00 07:00 15:00 23:00 Intake Total 1225 ml 700 ml Output Total 225 ml Balance 1225 ml 475 ml Intake Oral 225 ml IV Total 1000 ml Other 700 ml Output Urine Total 125 ml Estimated Blood Loss 100 ml Bladder Scan Volume Amount 908 ml # Voids 0 1 # Bowel Movements 0 (Gilda Doll MD R3) Result Diagram: 09/15/17 1215 09/15/17 1215 Imaging Last Impressions Hip and Pelvis X-Ray 09/16/17 1016 Signed Impressions: CONCLUSION: Anatomic alignment. Michel Mariano MD FACR Pelvis X-Ray 09/15/17 1202 Signed Impressions: CONCLUSION: Displaced subcapital fracture proximal right femur. Femur X-Ray 09/15/17 1202 Signed Impressions: CONCLUSION: There is a displaced subcapital right femoral neck fracture with 15 mm of super ior displacement of the distal fragment. Chest X-Ray 09/15/17 1202 Signed Impressions: CONCLUSION: No active disease. Head CT 09/15/17 0000 Signed Impressions: CONCLUSION: 1. 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 2. Chronic ischemic small vessel vasculopathy. Objective Remarks GENERAL: Elderly female in no acute distress. SKIN: Warm and dry. HEAD: Normocephalic. EYES: No scleral icterus. No injection or drainage. NECK: Supple, trachea midline. No JVD or lymphadenopathy. CARDIOVASCULAR: Regular rate and rhythm without murmurs, gallops, or rubs. RESPIRATORY: Breath sounds equal bilaterally. No accessory muscle use. GASTROINTESTINAL: Abdomen soft, non-tender, nondistended. MUSCULOSKELETAL: No cyanosis, or edema. Right leg in immobilizer brace. Strong pedal pulses. BACK: Nontender without obvious deformity. (Gilda Doll MD R3) A/P Assessment and Plan Patient is a 82-year-old female with a past medical history of hypertension and COPD on home oxygen at 3 L/min and Mnire's disease who presented to the emergency department after a fall complaining of right hip pain; x-ray showed right hip fracture. S/p right hip hemiarthroplasty on 09/16/[address] Hamilton. Discharge Planning Anticipate discharge home with home health vs rehab pending PT recommendations in the next 1-2 days. (Gilda Doll MD R3) Attending Attestation Attending note: Patient seen, examined, and discussed with resident team. I agree with assessment and management as documented and discussed with me. Pt is seen immediately postop in PACU. She is without complaints. Anticipate discharge to SNF in 2-3 days; appreciate ortho. (Judy Oconnor MD) Problem List: (1) Closed right hip fracture ICD Codes: S72.001A - Fracture of unspecified part of neck of right femur, initial encounter for closed fracture Status: Resolved Plan: Orthopedic surgery consulted- s/p right hip hemiarthroplasty on 09/16/[address] Hamilton - Lovenox 30mg SQ Q24H -[place] for pain 1-5, morphine for pain 6-10, morphine for breakthrough pain -Monitor vital signs (2) COPD with acute exacerbation ICD Codes: J44.1 - COPD with acute exacerbation Status: Acute Plan: -Duo nebs every 4 hours -Albuterol neb every 2 hours as needed for shortness of breath -prednisone 40 mg p.o. daily x 5 days -Titrate oxygen as needed to keep pulse ox over 88% but under 94% -Monitor pulse ox (3) Macrocytic anemia ICD Codes: D53.9 - Nutritional anemia, unspecified Status: Chronic Plan: Chronic per chart review - B12 wnl, folate elevated >20 (4) COPD (chronic obstructive pulmonary disease) ICD Codes: J44.9 - Chronic obstructive pulmonary disease, unspecified Status: Chronic Plan: -Continue home medication of budesonide/Pulmicort every 12 hours (5) Hypertension ICD Codes: I10 - Hypertension Status: Chronic Plan: -Continue home medication of labetalol 100 mg p.o. twice daily (6) Dizziness ICD Codes: R42 - Dizziness and giddiness Status: Chronic Plan: -Continue home medication of meclizine as needed (7) Nutrition, metabolism, and development symptoms ICD Codes: R63.8 - Other symptoms and signs concerning food and fluid intake Plan: Fluids: LR IV maintenance fluids until tolerating PO Electrolyte: Monitor and replete PRN Nutrition: Advance diet as tolerated (Gilda Doll MD R3) Problem Qualifiers (1) Closed right hip fracture: Qualified Codes: S72.001D - Fracture of unspecified part of neck of right femur , subsequent encounter for closed fracture with routine healing (2) COPD (chronic obstructive pulmonary disease): Qualified Codes: J44.9 - Chronic obstructive pulmonary disease, unspecified (3) Hypertension: Qualified Codes: I10 - Essential (primary) hypertension Gilda Doll MD R3 September 16, 2017 12:53 Judy Oconnor MD September 17, 2017 15:08
[2017-09-16] MEDS: ceFAZolin 2 GM PREMIX 50 ML IV SCH ×2 (13:05→19:58)
[2017-09-16 14:27] LABS: AUTOMATED NEUTROPHIL # 10.6 TH/MM3 (1.8-7.7); BASOPHIL % 0.2 % (0.0-2.0); EOSINOPHIL # 0.1 TH/MM3 (0-0.4); EOSINOPHIL % 0.6 % (0.0-4.0); HEMATOCRIT 32.2 % (35.0-46.0); HEMOGLOBIN 10.6 GM/DL (11.6-15.3); LYMPH % 6.4 % (9.0-44.0); LYMPHOCYTE # 0.8 TH/MM3 (1.0-4.8); MEAN CELL VOLUME 100.1 FL (80.0-100.0); MEAN CORPUSCULAR HEMOGLOBIN 32.9 PG (27.0-34.0); MEAN CORPUSCULAR HGB CONC 32.9 % (32.0-36.0); MEAN PLATELET VOLUME 7.5 FL (7.0-11.0); MONO % 9.1 % (0.0-8.0); MONOCYTE # 1.2 TH/MM3 (0-0.9); NEUT % 83.7 % (16.0-70.0); PLATELET COUNT 206 TH/MM3 (150-450); RED BLOOD COUNT 3.21 MIL/MM3 (4.00-5.30); RED CELL DISTRIBUTION WIDTH 13.4 % (11.6-17.2); WHITE BLOOD COUNT 12.7 TH/MM3 (4.0-11.0)
--- NOTE | 2017-09-16 14:27 | EKG ---
Date Performed: 09/15/2017 Time Performed: 11:52:02 PTAGE: 82 years EKG: Sinus rhythm NORMAL ECG PREVIOUS TRACING : 06/02/2012 11.51 DOCTOR: Velasquez Allred Interpretating Date/Time 09/16/2017 14:26:13
[2017-09-16 14:41] LABS: BICARBONATE 35.6 MEQ/L (21.0-32.0); CALCIUM 8.8 MG/DL (8.5-10.1); CREATININE 0.8 MG/DL (0.50-1.00)
--- NOTE | 2017-09-16 17:56 | HHI.PR ---
Addendum to Inpatient Note Addendum Reason: Additional Documentation Additional Information S: Medical team biodiesel division manager notified by discharge nurse for evaluation of patient. Per her report, patient was admitted 09/15 for surgical fixation of a right hip fracture. She was taken to the OR today for fixation and has done well postoperatively. However, during surgery a Peterson catheter was to be placed due to urinary retention. Unfortunately this was not completed. Per patient and nursing report, patient has not had a full void since the afternoon of 09/15. Overnight she began complaining of urinary retention with a "full bladder." Per chart review, patient has had 3 voids charted, however <50ml obtained on pad per nursing report per episode. Currently she reports that her distention has worsened and she is very uncomfortable. Nursing staff reports multiple attempts last night as well as throughout the day for Peterson placement. Nursing staff requests Peterson placement by MD. O: GENERAL: Elderly female lying in bed in no acute distress. SKIN: Warm and dry. No rash. EYES: No scleral icterus. No injection or drainage. PERRLA. EOMI. HENT: Normocephalic. Atraumatic. MMM. NECK: No visible JVD or lymphadenopathy. CARDIOVASCULAR: Warm and well perfused. RESPIRATORY: Normal respiratory effort. GASTROINTESTINAL: Abdomen nondistended. Bladder edge palpated at inferior ABD. MUSCULOSKELETAL: Strength grossly WNL. Right leg immobilizer in place with CBI surgical wounds. NEURO/PSYCH: Afocal. Awake, alert, and oriented x3. A/P: Ms. Wade is a 82-year-old female admitted for surgical fixation of her right hip fracture. Patient is currently presenting with urinary retention without prior history. 1. Urinary retention -Multiple attempts made by medical team to place 12 tristanian catheter -However, due to patient's difficult anatomy as well as limitation due to her new surgical hip/pain Peterson was unable to be placed -Dr. Kaur, urology, consulted for Peterson catheter placement at this time. Dr. Kaur called and notified of patient and requests Urology cart to the bedside; no other orders given. -Patient currently on Cefazolin Q6H which will assist with ABX coverage; continue to monitor for signs of UTI/urosepsis. SDW: Nik Heller MD R2 September 16, 2017 17:56
--- NOTE | 2017-09-16 19:40 | PD.CONS ---
HPI Service Urology Reason for Consult Retention; difficult silvestre Primary Care Physician Debbi Rodriguez MD Diagnosis: History of Present Illness 82yo female s/p Right hip surgery seen in consultation for urinary retention. Patient underwent surgery today for her right hip. A silvestre catheter was not placed in the OR at the time of surgery. Patient has been unable to void since the surgery. She has never had issues voiding prior to surgery. No fevers. Bladder scan noted over 900cc in bladder. Multiple attempts by the nursing staff to place catheter was unsuccessful. Review of Systems ROS Limitations: Clinical Condition Constitutional: DENIES: Fever Endocrine: DENIES: Heat/cold intolerance Eyes: DENIES: Blurred vision Ears, nose, mouth, throat: DENIES: Hearing loss Respiratory: DENIES: Apneas, Cough Cardiovascular: DENIES: Chest pain Gastrointestinal: COMPLAINS OF: Abdominal pain Genitourinary: DENIES: Dysuria, Nocturia Musculoskeletal: COMPLAINS OF: Joint pain, DENIES: Back pain Neurologic: DENIES: Abnormal gait Psychiatric: DENIES: Anxiety Except as stated in HPI: all other systems reviewed are Neg Past Family Social History Past Medical History Anxiety, tobacco use, migraine, Mnire's, hypertension, aortic aneurysm, COPD, chronic bronchitis, emphysema, osteoarthritis Health maintenance: Colonoscopy 2013, Pap smear 2013, lipids 2013, occult blood screen 2013, DEXA bone density scan 2013, mammography 2013 Past Surgical History Cataract surgery-bilateral Vaginal cyst removal Hand surgery Hysterectomy, partial Tonsillectomy and adenoidectomy Reported Medications Reported Meds & Active Scripts Active Reported Calcium 600+D (Calcium Carbonate-Vitamin D) 600-400 Mg-Unit Tab 2 Tab PO BID Vivarin (Caffeine) 200 Mg Tab 200 Mg PO DAILY PRN Vitamin C (Ascorbic Acid) 1,000 Mg Tablet.er 1,000 Mg PO DAILY Sleep Aid (Diphenhydramine HCl (Sleep)) Unknown Strength Tab 1 Tab PO HS Prilosec (Omeprazole Magnesium) 20 Mg Tab 20 Mg PO BID Take 1 tablet in the am and noon Multiple Vitamin 1 Tab 1 Tab PO DAILY Aspirin Adult Low Strength (Aspirin) 81 Mg Tabdr 81 Mg PO DAILY Prozac (Fluoxetine HCl) 20 Mg Cap 20 Mg PO DAILY Meclizine (Meclizine HCl) 25 Mg Tab 25 Mg PO TID PRN Labetalol (Labetalol HCl) 200 Mg Tab 100 Mg PO BID Flonase Nasal Valentine (Fluticasone Nasal Valentine) 50 Mcg/Act Valentine 2 Spr EACH NARE BID Duoneb (Ipratropium-Albuterol Neb) 0.5-2.5 Mg/3 Ml Neb 3 Ml NEB Q8HR Budesonide Neb 0.5 Mg/2 Ml Neb 0.5 Mg NEB Q12HR NEB Allergies: Coded Allergies: No Known Allergies (Verified Allergy, Unknown, 09/15/17) chlorthalidone (Verified Adverse Reaction, Mild, 09/15/17) Vomiting Uncoded Allergies: diuretics (Allergy, Unknown, 09/15/17) Tongue swelling Active Ordered Medications Current Medications Medications (Trade) Dose Ordered Sig/Nitza Route Start Time Stop Time Status Last Admin Lactated Ringer's 1,000 ml @ 100 mls/hr Q10H IV 09/15/17 14:16 09/16/17 02:42 (NS Flush) 2 ml UNSCH PRN IV FLUSH 09/15/17 14:30 (NS Flush) 2 ml BID IV FLUSH 09/15/17 21:00 09/15/17 20:14 ([place] 5-325 Mg) 1 tab Q4H PRN PO 09/15/17 14:30 09/16/17 15:31 (Tylenol) 650 mg Q4H PRN PO 09/15/17 14:30 (Colace) 100 mg BID PO 09/15/17 21:00 09/15/17 20:13 (Milk Of Magnesia Liq) 30 ml Q6H PRN PO 09/15/17 14:30 (Narcan Inj) 0.4 mg UNSCH PRN IV PUSH 09/15/17 14:30 (Duoneb Neb) 1 ampule Q4HR NEB INH 09/15/17 16:00 09/16/17 16:29 (Albuterol Neb) 2.5 mg Q2HR NEB PRN INH 09/15/17 14:30 (Deltasone) 40 mg DAILY PO 09/16/17 09:00 (Pulmicort Respule Neb) 0.5 mg Q12HR NEB NEB 09/15/17 20:00 09/15/17 20:24 (PROzac) 20 mg DAILY PO 09/16/17 09:00 (Antivert) 25 mg TID PRN PO 09/15/17 14:30 (Vitamin C) 1,000 mg DAILY PO 09/16/17 09:00 (Oscal-D 250-125) 1 mg BID PO 09/15/17 21:00 09/15/17 20:13 (Benadryl) 25 mg HS PO 09/15/17 21:00 09/15/17 20:13 (Flonase Satish Spr) 2 spray BID EACH NARE 09/15/17 21:00 09/15/17 21:41 (Theragran) 1 tab DAILY PO 09/16/17 09:00 (Protonix) 20 mg BID PO 09/15/17 21:00 09/15/17 20:13 (Morphine Inj) 2 mg Q2H PRN IV PUSH 09/15/17 16:30 (Morphine Inj) 2 mg Q3H PRN IM 09/15/17 15:00 (Trandate) 100 mg BID PO 09/15/17 21:00 09/16/17 06:37 Lactated Ringer's 1,000 ml @ 30 mls/hr Q24H PRN IV 09/15/17 22:00 09/18/17 21:59 09/16/17 02:42 Sodium Chloride 500 ml @ 30 mls/hr [id number] PRN IV 09/15/17 22:00 09/18/17 21:59 (Betadine 5% Antisepsis Kit) 1 applic [employer] PRN EACH NARE 09/15/17 22:00 09/18/17 21:59 (Chlorhexidine 2% Cloth) 3 pack [employer] PRN TOPICAL 09/15/17 22:00 09/18/17 21:59 Cefazolin Sodium/ Dextrose 50 ml @ 100 mls/hr Q6H IV 09/16/17 14:00 09/17/17 02:29 09/16/17 13:05 (Lovenox Inj) 30 mg Q24H SQ 09/17/17 10:00 (Vitamin D3) 5,000 units DAILY PO 09/17/17 09:00 ([facility] [place] [facility]) ALL NURSING DEPARTME... UNSCH PRN .XX 09/16/17 10:37 09/17/17 10:36 Family History Has a daughter who is alive, in her 50s, has bipolar and arthritis Has another daughter, alive, in her late 40s with history of PSVT Son, alive, in his 50s, bipolar Aunt with colon cancer Uncle with leukemia Father at age 66 of [place], also had arthritis Mother at 39 years old of breast cancer Social History , not working, denies alcohol use. Current every day smoker. Has smoked for more than 50 years. One pack per day. Has cut back to 4-6 cigarettes per day. Physical Exam Vital Signs Date Time Temp Pulse Resp B/P (MAP) Pulse Ox O2 Delivery O2 Flow Rate FiO2 09/16/17 18:09 Nasal Cannula 4.00 09/16/17 16:29 97 Nasal Cannula 3.00 09/16/17 15:31 95 Nasal Cannula 5.00 09/16/17 15:31 97.2 90 18 125/69 (87) 95 09/16/17 12:29 97.8 91 163/77 (105) 16 09/16/17 12:29 Nasal Cannula 3.00 09/16/17 11:30 97.7 90 23 126/69 (88) 96 Nasal Cannula 3 09/16/17 11:15 89 29 122/64 (83) 95 09/16/17 11:00 87 28 93/62 (72) 98 09/16/17 10:45 86 24 92/58 (69) 100 09/16/17 10:44 86 20 89/54 (66) 98 09/16/17 10:40 85 19 86/56 (66) 100 Nasal Cannula 3 09/16/17 10:36 97.7 84 22 90/53 (65) 96 Simple Mask 6 09/16/17 06:08 18 09/16/17 04:00 97.8 84 18 137/75 (95) 95 09/16/17 03:13 96 Nasal Cannula 3.00 09/16/17 00:47 95 Nasal Cannula 3.00 09/16/17 00:15 97.7 88 18 115/57 (76) 96 09/15/17 21:50 Nasal Cannula 4.00 09/15/17 20:27 95 Nasal Cannula 3.00 09/15/17 19:55 97.6 83 18 117/66 (83) 94 Physical Exam GENERAL: This is a well-nourished, well-developed patient, in no apparent distress. SKIN: No rashes, ecchymoses or lesions. Cool and dry. HEAD: Atraumatic. Normocephalic. EYES: Extraocular motions intact. No scleral icterus. No injection or drainage. ENT: Nose without bleeding, purulent drainage. Airway patent. NECK: Trachea midline. CARDIOVASCULAR: Normal pulse RESPIRATORY: nonlabored, on O2 nasal cannula GASTROINTESTINAL: Abdomen soft, non-tender. GENITOURINARY: Retracted urethral meatus with atrophic vaginal canal MUSCULOSKELETAL: Extremities without clubbing, cyanosis, or edema. RLE brace in place NEUROLOGICAL: Awake and alert. Motor and sensory grossly within normal limits. Normal speech. Lab results reviewed: Yes Laboratory Tests Test 09/16/17 13:40 White Blood Count 12.7 Red Blood Count 3.21 Hemoglobin 10.6 Hematocrit 32.2 Mean Corpuscular Volume 100.1 Mean Corpuscular Hemoglobin 32.9 Mean Corpuscular Hemoglobin Concent 32.9 Red Cell Distribution Width 13.4 Platelet Count 206 Mean Platelet Volume 7.5 Neutrophils (%) (Auto) 83.7 Lymphocytes (%) (Auto) 6.4 Monocytes (%) (Auto) 9.1 Eosinophils (%) (Auto) 0.6 Basophils (%) (Auto) 0.2 Neutrophils # (Auto) 10.6 Lymphocytes # (Auto) 0.8 Monocytes # (Auto) 1.2 Eosinophils # (Auto) 0.1 Basophils # (Auto) 0.0 CBC Comment DIFF FINAL Differential Comment Blood Urea Nitrogen 12 Creatinine 0.80 Random Glucose 114 Calcium Level 8.8 Sodium Level 137 Potassium Level 4.4 Chloride Level 96 Carbon Dioxide Level 35.6 Anion Gap 5 Estimat Glomerular Filtration Rate 69 Result Diagram: 09/16/17 1340 09/16/17 1340 Personally reviewed images: Yes Imaging Last Impressions Hip and Pelvis X-Ray 09/16/17 1016 Signed Impressions: CONCLUSION: Anatomic alignment. Michel Mariano MD FACR Pelvis X-Ray 09/15/17 1202 Signed Impressions: CONCLUSION: Displaced subcapital fracture proximal right femur. Femur X-Ray 09/15/17 1202 Signed Impressions: CONCLUSION: There is a displaced subcapital right femoral neck fracture with 15 mm of super ior displacement of the distal fragment. Chest X-Ray 09/15/17 1202 Signed Impressions: CONCLUSION: No active disease. Head CT 09/15/17 0000 Signed Impressions: CONCLUSION: 1. 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 2. Chronic ischemic small vessel vasculopathy. Assessment and Plan Problem List: (1) Urinary retention ICD Code: R33.9 - Retention of urine, unspecified Assessment and Plan -Successful silvestre catheter placement after positioning left LE up with nursing assistance and urethral dilation up to 16Fr using urethral sounds -Silvestre catheter with clear urine return, over 900cc -Silvestre catheter to remain in place. Patient to be discharged with catheter in place with Urology follow-up in 1-2 weeks for catheter removal and voiding trial -Please call with questions Segundo Kaur MD September 16, 2017 19:40
[2017-09-16] MEDS: diphenhydrAMINE HCL 25 MG CAP PO SCH (19:59)
[2017-09-17] VITALS (8 sets, daily range): BP systolic 111–168; BP diastolic 18–88; PULSE 68–99; RESP 16–20; TEMP 97–98.7; O2SAT 93–99
[2017-09-17] MEDS: RESP: ALBUTEROL 2.5 MG/IPRATROPIUM 0.5 MG NEB (SCH) INH ×7 (00:26→23:52)
[2017-09-17] MEDS: ceFAZolin 2 GM PREMIX 50 ML IV SCH (01:19)
[2017-09-17] MEDS: ACETAMINOPHEN/HYDROcodone 325 MG/5 MG TAB PO PRN ×3 (01:21→18:24)
[2017-09-17 04:40] LABS: HEMATOCRIT 31.8 % (35.0-46.0); HEMOGLOBIN 10.8 GM/DL (11.6-15.3); MEAN CELL VOLUME 99.4 FL (80.0-100.0); MEAN CORPUSCULAR HEMOGLOBIN 33.6 PG (27.0-34.0); MEAN CORPUSCULAR HGB CONC 33.8 % (32.0-36.0); MEAN PLATELET VOLUME 7.9 FL (7.0-11.0); PLATELET COUNT 178 TH/MM3 (150-450); WHITE BLOOD COUNT 9.9 TH/MM3 (4.0-11.0)
[2017-09-17 05:01] LABS: BICARBONATE 35.3 MEQ/L (21.0-32.0); CALCIUM 8.6 MG/DL (8.5-10.1); CREATININE 0.69 MG/DL (0.50-1.00)
[2017-09-17] MEDS: LACTATED RINGER'S 1000 ML INJ 1,000 ML IV SCH (06:16)
--- NOTE | 2017-09-17 06:35 | PD.ORT.PN ---
Subjective Subjective Remarks POD 1 s/p right hip hemiarthroplasty states has not been out of bed yet. reports pain minimal. no complaints. Objective Vitals Vital Signs Date Time Temp Pulse Resp B/P (MAP) Pulse Ox O2 Delivery O2 Flow Rate FiO2 09/17/17 04:05 98.7 99 18 151/83 (105) 96 09/17/17 02:07 17 09/17/17 00:10 97.4 98 18 139/80 (99) 95 09/16/17 21:58 Nasal Cannula 4.00 09/16/17 19:20 97.7 92 18 121/76 (91) 96 09/16/17 18:09 Nasal Cannula 4.00 09/16/17 16:29 97 Nasal Cannula 3.00 09/16/17 15:31 95 Nasal Cannula 5.00 09/16/17 15:31 97.2 90 18 125/69 (87) 95 09/16/17 12:29 97.8 91 163/77 (105) 16 09/16/17 12:29 Nasal Cannula 3.00 09/16/17 11:30 97.7 90 23 126/69 (88) 96 Nasal Cannula 3 09/16/17 11:15 89 29 122/64 (83) 95 09/16/17 11:00 87 28 93/62 (72) 98 09/16/17 10:45 86 24 92/58 (69) 100 09/16/17 10:44 86 20 89/54 (66) 98 09/16/17 10:40 85 19 86/56 (66) 100 Nasal Cannula 3 09/16/17 10:36 97.7 84 22 90/53 (65) 96 Simple Mask 6 I/O 09/16/17 09/16/17 09/16/17 09/17/17 09/17/17 09/17/17 07:00 15:00 23:00 07:00 15:00 23:00 Intake Total 1225 ml 750 ml 1866 ml 650 ml Output Total 225 ml 30 ml 2750 ml Balance 1225 ml 525 ml 1836 ml -2100 ml Intake Oral 225 ml 480 ml 600 ml IV Total 1000 ml 50 ml 1386 ml 50 ml Other 700 ml Output Urine Total 125 ml 30 ml 2750 ml Estimated Blood Loss 100 ml Bladder Scan Volume Amount 908 ml 901 ml # Voids 0 2 1 0 # Bowel Movements 0 Result Diagram: 5/31/18 0406 09/17/17 0406 Imaging Last 24 hours Impressions Pelvis X-Ray 09/15/17 1202 Signed Impressions: CONCLUSION: Displaced subcapital fracture proximal right femur. Femur X-Ray 09/15/17 1202 Signed Impressions: CONCLUSION: There is a displaced subcapital right femoral neck fracture with 15 mm of super ior displacement of the distal fragment. Chest X-Ray 09/15/17 1202 Signed Impressions: CONCLUSION: No active disease. Objective Remarks RLE: dressings clean and dry. intact. +CKS. NVI Assessment & Plan Assessment and Plan 1) Right Femoral Neck Fx s/p Hemiarthroplasty - POD 1 -WBAT -posterior hip precautions -CKS while in bed -daily dressing changes POD 2 with primapore. begin adding xeroform or bacitracin POD 10 -CM for SNF placement -f/u with Joy or PA in 2 weeks Jeyson Chris/Police Commissioner MAXIME September 17, 2017 06:35
[2017-09-17] MEDS ORDERED: VITA500012 PO (06:37)
[2017-09-17] MEDS ORDERED: CALCTAB19 PO (06:37)
[2017-09-17] MEDS ORDERED: WHEEMIS3 (06:37)
[2017-09-17] MEDS ORDERED: NORC5TAB PO (06:37)
[2017-09-17] MEDS ORDERED: WALKER/ADULT/FO1 MIS (06:37)
[2017-09-17] MEDS ORDERED: XARE10TA PO (06:37)
[2017-09-17] MEDS ORDERED: VITA2000 PO (06:37)
[2017-09-17] MEDS: RESP: BUDESONIDE 0.5 MG/2 ML NEB NEB SCH ×2 (08:28→20:38)
[2017-09-17] MEDS: CHOLECALCIFEROL (VIT D3) 5000 UNIT CAP PO SCH (08:46)
[2017-09-17] MEDS: PANTOPRAZOLE SOD 20 MG DELAYED RELEASE TAB PO SCH ×2 (08:46→21:14)
[2017-09-17] MEDS: CALCIUM/VITAMIN D 250 MG/125 U TAB PO SCH ×2 (08:46→21:13)
[2017-09-17] MEDS: FLUoxetine HCL 20 MG CAP PO SCH (08:46)
[2017-09-17] MEDS: DOCUSATE SODIUM 100 MG CAP PO SCH ×2 (08:46→21:13)
[2017-09-17] MEDS: predniSONE 20 MG TAB PO SCH (08:46)
[2017-09-17] MEDS: ASCORBIC ACID 500 MG TAB PO SCH (08:46)
[2017-09-17] MEDS: LABETALOL HCL 100 MG TAB PO SCH ×2 (08:46→21:14)
[2017-09-17] MEDS: MULTIVITAMIN TAB PO SCH (08:46)
[2017-09-17] MEDS: ENOXAPARIN SODIUM 30 MG/0.3 ML SYRINGE SQ SCH (08:47)
[2017-09-17] MEDS: FLUTICASONE PROPIONATE 50 MCG/ACT 16 GM NASAL SPRAY EACH NARE SCH ×2 (08:51→21:14)
[2017-09-17] MEDS: SODIUM CHLORIDE 0.9% FLUSH 10 ML FLUSH IV FLUSH SCH ×2 (08:51→21:14)
--- NOTE | 2017-09-17 10:05 | HHI.FPPN ---
Subjective Remarks Yesterday, patient was noted to have urinary retention with as much as 900 mL in her bladder. After several attempts by nursing staff and then by the medicine residents, urology was consulted and performed serial urethral dilation with urethral sounds and then successfully placed Peterson catheter. This morning, patient reports that her pain is well controlled, her breathing is good. Discussed plan of care with patient. (Marcial Bryson MD R2) Objective Vitals Vital Signs Date Time Temp Pulse Resp B/P (MAP) Pulse Ox O2 Delivery O2 Flow Rate FiO2 09/17/17 08:30 94 Nasal Cannula 4.00 09/17/17 04:05 98.7 99 18 151/83 (105) 96 09/17/17 02:07 17 09/17/17 00:10 97.4 98 18 139/80 (99) 95 09/16/17 21:58 Nasal Cannula 4.00 09/16/17 19:20 97.7 92 18 121/76 (91) 96 09/16/17 18:09 Nasal Cannula 4.00 09/16/17 16:29 97 Nasal Cannula 3.00 09/16/17 15:31 95 Nasal Cannula 5.00 09/16/17 15:31 97.2 90 18 125/69 (87) 95 09/16/17 12:29 97.8 91 163/77 (105) 16 09/16/17 12:29 Nasal Cannula 3.00 09/16/17 11:30 97.7 90 23 126/69 (88) 96 Nasal Cannula 3 09/16/17 11:15 89 29 122/64 (83) 95 09/16/17 11:00 87 28 93/62 (72) 98 09/16/17 10:45 86 24 92/58 (69) 100 09/16/17 10:44 86 20 89/54 (66) 98 09/16/17 10:40 85 19 86/56 (66) 100 Nasal Cannula 3 09/16/17 10:36 97.7 84 22 90/53 (65) 96 Simple Mask 6 I/O 09/16/17 09/16/17 09/16/17 09/17/17 09/17/17 09/17/17 07:00 15:00 23:00 07:00 15:00 23:00 Intake Total 1225 ml 750 ml 1866 ml 650 ml Output Total 225 ml 30 ml 2750 ml Balance 1225 ml 525 ml 1836 ml -2100 ml Intake Oral 225 ml 480 ml 600 ml IV Total 1000 ml 50 ml 1386 ml 50 ml Other 700 ml Output Urine Total 125 ml 30 ml 2750 ml Estimated Blood Loss 100 ml Bladder Scan Volume Amount 908 ml 901 ml # Voids 0 2 1 0 # Bowel Movements 0 (Marcial Bryson MD R2) Result Diagram: 09/17/17 0406 09/17/17 0406 Imaging Last Impressions Hip and Pelvis X-Ray 09/16/17 1016 Signed Impressions: CONCLUSION: Anatomic alignment. Michel Mariano MD FACR Pelvis X-Ray 09/15/17 1202 Signed Impressions: CONCLUSION: Displaced subcapital fracture proximal right femur. Femur X-Ray 09/15/17 1202 Signed Impressions: CONCLUSION: There is a displaced subcapital right femoral neck fracture with 15 mm of super ior displacement of the distal fragment. Chest X-Ray 09/15/17 1202 Signed Impressions: CONCLUSION: No active disease. Head CT 09/15/17 0000 Signed Impressions: CONCLUSION: 1. 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 2. Chronic ischemic small vessel vasculopathy. Objective Remarks GENERAL: Elderly female in no acute distress. SKIN: Warm and dry. HEAD: Normocephalic. EYES: No scleral icterus. No injection or drainage. NECK: Supple, trachea midline. No JVD or lymphadenopathy. CARDIOVASCULAR: Regular rate and rhythm without murmurs, gallops, or rubs. RESPIRATORY: Breath sounds equal bilaterally. No accessory muscle use. No wheezing, rhonchi, rales. GASTROINTESTINAL: Abdomen soft, non-tender, nondistended. MUSCULOSKELETAL: No cyanosis, or edema. Right leg in immobilizer brace. pedal pulses intact. Motor and sensation and capillary refill intact distal to right hip injury. BACK: Nontender without obvious deformity. (Marcial Bryson MD R2) A/P Assessment and Plan Patient is a 82-year-old female with a past medical history of hypertension and COPD on home oxygen at 3 L/min and Mnire's disease who presented to the emergency department after a fall complaining of right hip pain; x-ray showed right hip fracture. S/p right hip hemiarthroplasty on 09/16/[address] Hamilton. Patient was also noted to have urinary retention, likely secondary to urethral stricture, which required serial dilation and Peterson catheter placement by urology. Discharge Planning Anticipate discharge home with home health vs rehab pending PT recommendations in the next 1-2 days. (Marcial Bryson MD R2) Attending Attestation Patient seen, examined, and discussed with resident team. I agree with assessment and management as documented and discussed with me. PT is seen this morning after working with PT. She reports pain is controlled. She is seen with case management and reports she is amenable to go to rehab tomorrow. (Judy Oconnor MD) Problem List: (1) Closed right hip fracture ICD Codes: S72.001A - Fracture of unspecified part of neck of right femur, initial encounter for closed fracture Status: Resolved Plan: Orthopedic surgery consulted- s/p right hip hemiarthroplasty on 09/16/[address] Hamilton - Lovenox 30mg SQ Q24H -[place] for pain 1-5, morphine for pain 6-10, morphine for breakthrough pain -Monitor vital signs (2) Urinary retention ICD Codes: R33.9 - Retention of urine, unspecified Plan: Urology consult appreciated: -Successful Peterson catheter placement after positioning left LE up with nursing assistance and urethral dilation up to 16Fr using urethral sounds -Peterson catheter with clear urine return, over 900cc -Peterson catheter to remain in place. Patient to be discharged with catheter in place with Urology follow-up in 1-2 weeks for catheter removal and voiding trial (3) COPD with acute exacerbation ICD Codes: J44.1 - COPD with acute exacerbation Status: Acute Plan: -Duo nebs every 4 hours -Albuterol neb every 2 hours as needed for shortness of breath -prednisone 40 mg p.o. daily x 5 days -Titrate oxygen as needed to keep pulse ox over 88% but under 94% -Monitor pulse ox (4) Macrocytic anemia ICD Codes: D53.9 - Nutritional anemia, unspecified Status: Chronic Plan: Chronic per chart review - B12 wnl, folate elevated >20 (5) COPD (chronic obstructive pulmonary disease) ICD Codes: J44.9 - Chronic obstructive pulmonary disease, unspecified Status: Chronic Plan: -Continue home medication of budesonide/Pulmicort every 12 hours (6) Hypertension ICD Codes: I10 - Hypertension Status: Chronic Plan: -Continue home medication of labetalol 100 mg p.o. twice daily (7) Dizziness ICD Codes: R42 - Dizziness and giddiness Status: Chronic Plan: -Continue home medication of meclizine as needed (8) Nutrition, metabolism, and development symptoms ICD Codes: R63.8 - Other symptoms and signs concerning food and fluid intake Plan: Fluids: tolerating PO Electrolyte: Monitor and replete PRN Nutrition: Advance diet as tolerated (Marcial Bryson MD R2) Problem Qualifiers (1) Closed right hip fracture: Qualified Codes: S72.001D - Fracture of unspecified part of neck of right femur , subsequent encounter for closed fracture with routine healing (2) COPD (chronic obstructive pulmonary disease): Qualified Codes: J44.9 - Chronic obstructive pulmonary disease, unspecified (3) Hypertension: Qualified Codes: I10 - Essential (primary) hypertension Marcial Bryson MD R2 September 17, 2017 10:05 Judy Oconnor MD September 17, 2017 21:10
[2017-09-17] MEDS: diphenhydrAMINE HCL 25 MG CAP PO SCH (21:14)
[2017-09-18] VITALS: BP 117/71; PULSE 92; RESP 16; TEMP 98.5; O2SAT 98
[2017-09-18] MEDS: ACETAMINOPHEN/HYDROcodone 325 MG/5 MG TAB PO PRN ×2 (02:49→15:23)
[2017-09-18 05:14] LABS: HEMATOCRIT 29.4 % (35.0-46.0); MEAN CELL VOLUME 99.2 FL (80.0-100.0); MEAN CORPUSCULAR HEMOGLOBIN 33.8 PG (27.0-34.0); MEAN CORPUSCULAR HGB CONC 34.1 % (32.0-36.0); MEAN PLATELET VOLUME 8.3 FL (7.0-11.0); PLATELET COUNT 169 TH/MM3 (150-450); RED BLOOD COUNT 2.97 MIL/MM3 (4.00-5.30); RED CELL DISTRIBUTION WIDTH 13.2 % (11.6-17.2); WHITE BLOOD COUNT 8.6 TH/MM3 (4.0-11.0)
[2017-09-18] MEDS: RESP: ALBUTEROL 2.5 MG/IPRATROPIUM 0.5 MG NEB (SCH) INH ×3 (05:18→12:00)
[2017-09-18 05:36] LABS: BICARBONATE 34.3 MEQ/L (21.0-32.0); CALCIUM 7.8 MG/DL (8.5-10.1); CREATININE 0.67 MG/DL (0.50-1.00)
--- NOTE | 2017-09-18 06:28 | PD.ORT.PN ---
Subjective Subjective Remarks POD 2 s/p right hip hemiarthroplasty out of bed with therapy. states pain controlled and doing well Objective Vitals Vital Signs Date Time Temp Pulse Resp B/P (MAP) Pulse Ox O2 Delivery O2 Flow Rate FiO2 09/18/17 00:00 98.5 92 16 117/71 (86) 98 09/17/17 20:40 98 Nasal Cannula 4.00 09/17/17 20:00 97.4 96 20 111/65 (80) 99 09/17/17 16:00 97.0 68 16 142/18 (59) 93 09/17/17 12:00 97.6 84 16 117/64 (81) 95 09/17/17 08:30 94 Nasal Cannula 4.00 09/17/17 08:00 98.0 90 18 168/88 (114) 97 I/O 09/17/17 09/17/17 09/17/17 09/18/17 09/18/17 09/18/17 07:00 15:00 23:00 07:00 15:00 23:00 Intake Total 650 ml 480 ml Output Total 2750 ml 300 ml Balance -2100 ml 180 ml Intake Oral 600 ml 480 ml IV Total 50 ml Output Urine Total 2750 ml 300 ml # Voids 0 # Bowel Movements 0 Result Diagram: 09/18/17 0416 09/18/17 0416 Imaging Last 24 hours Impressions Pelvis X-Ray 09/15/17 1202 Signed Impressions: CONCLUSION: Displaced subcapital fracture proximal right femur. Femur X-Ray 09/15/17 1202 Signed Impressions: CONCLUSION: There is a displaced subcapital right femoral neck fracture with 15 mm of super ior displacement of the distal fragment. Chest X-Ray 09/15/17 1202 Signed Impressions: CONCLUSION: No active disease. Objective Remarks RLE: dressings clean and dry. intact. +CKS. NVI Assessment & Plan Assessment and Plan 1) Right Femoral Neck Fx s/p Hemiarthroplasty - POD 2 -WBAT -posterior hip precautions -CKS while in bed -daily dressing changes POD 2 with primapore. begin adding xeroform or bacitracin POD 10 -CM for SNF placement -ortho clear for DC to SNF -f/u with [facility] or PA in 2 weeks Jeyson Chris/Civil Rights Investigator MAXIME Sep 18, 2017 06:28
[2017-09-18 08:00] VITALS: BP 122/68; PULSE 94; RESP 18; TEMP 99.5; O2SAT 98
[2017-09-18] MEDS: FLUoxetine HCL 20 MG CAP PO SCH (09:00)
[2017-09-18] MEDS: FLUTICASONE PROPIONATE 50 MCG/ACT 16 GM NASAL SPRAY EACH NARE SCH (09:00)
[2017-09-18] MEDS: SODIUM CHLORIDE 0.9% FLUSH 10 ML FLUSH IV FLUSH SCH (09:00)
--- NOTE | 2017-09-18 09:08 | HHI.FPPN ---
Subjective Remarks Patient seen and examined today. No acute events overnight. Patient denies nausea, vomiting, fever, chills, abdominal pain, chest pain, shortness of breath. Leg pain well controlled. Denies change in sensation of leg. No new complaints. (Marcial Middleton MD R1) Objective Vitals Vital Signs Date Time Temp Pulse Resp B/P (MAP) Pulse Ox O2 Delivery O2 Flow Rate FiO2 09/18/17 00:00 98.5 92 16 117/71 (86) 98 09/17/17 20:40 98 Nasal Cannula 4.00 09/17/17 20:00 97.4 96 20 111/65 (80) 99 09/17/17 16:00 97.0 68 16 142/18 (59) 93 09/17/17 12:00 97.6 84 16 117/64 (81) 95 I/O 09/17/17 09/17/17 09/17/17 09/18/17 09/18/17 09/18/17 07:00 15:00 23:00 07:00 15:00 23:00 Intake Total 650 ml 480 ml Output Total 2750 ml 300 ml Balance -2100 ml 180 ml Intake Oral 600 ml 480 ml IV Total 50 ml Output Urine Total 2750 ml 300 ml # Voids 0 # Bowel Movements 0 (Marcial Middleton MD R1) Result Diagram: 09/18/1741509/18/17415 Objective Remarks GENERAL: Elderly female in no acute distress. SKIN: Warm and dry. HEAD: Normocephalic. EYES: No scleral icterus. No injection or drainage. NECK: Supple, trachea midline. No JVD or lymphadenopathy. CARDIOVASCULAR: Regular rate and rhythm without murmurs, gallops, or rubs. RESPIRATORY: Breath sounds equal bilaterally. No accessory muscle use. No wheezing, rhonchi, rales. GASTROINTESTINAL: Abdomen soft, non-tender, nondistended. MUSCULOSKELETAL: No cyanosis, or edema. Right leg in immobilizer brace. Pedal pulses intact. Motor and sensation and capillary refill intact distal to right hip injury. BACK: Nontender without obvious deformity. (Marcial Middleton MD R1) A/P Assessment and Plan Patient is a 82-year-old female with a past medical history of hypertension and COPD on home oxygen at 3 L/min and Mnire's disease who presented to the emergency department after a fall complaining of right hip pain; x-ray showed right hip fracture. S/p right hip hemiarthroplasty on 09/16/[address] Hamilton. Patient was also noted to have urinary retention, likely secondary to urethral stricture, which required serial dilation and Peterson catheter placement by urology. Discharge Planning Anticipate discharge home to SNF today (Marcial Middleton MD R1) Attending Attestation Patient seen and examined, discussed with resident team. I agree with assessment and management as documented and discussed with me. Pt without complaints. She feels ready to go to rehab today. Discharge to SNF. (Judy Oconnor MD) Problem List: (1) Closed right hip fracture ICD Codes: S72.001A - Fracture of unspecified part of neck of right femur, initial encounter for closed fracture Status: Resolved Plan: Orthopedic surgery consulted- s/p right hip hemiarthroplasty on 09/16/[address] Hamilton - Lovenox 30mg SQ Q24H -[place] for pain 1-5, morphine for pain 6-10, morphine for breakthrough pain -Monitor vital signs (2) Urinary retention ICD Codes: R33.9 - Retention of urine, unspecified Plan: Urology consult appreciated: -Successful Peterson catheter placement after positioning left LE up with nursing assistance and urethral dilation up to 16Fr using urethral sounds -Peterson catheter with clear urine return, over 900cc -Peterson catheter to remain in place. Patient to be discharged with catheter in place with Urology follow-up in 1-2 weeks for catheter removal and voiding trial (3) COPD with acute exacerbation ICD Codes: J44.1 - COPD with acute exacerbation Status: Acute Plan: -Duo nebs every 4 hours -Albuterol neb every 2 hours as needed for shortness of breath -prednisone 40 mg p.o. daily x 5 days -Titrate oxygen as needed to keep pulse ox over 88% but under 94% -Monitor pulse ox (4) Macrocytic anemia ICD Codes: D53.9 - Nutritional anemia, unspecified Status: Chronic Plan: Chronic per chart review - B12 wnl, folate elevated >20 (5) COPD (chronic obstructive pulmonary disease) ICD Codes: J44.9 - Chronic obstructive pulmonary disease, unspecified Status: Chronic Plan: -Continue home medication of budesonide/Pulmicort every 12 hours (6) Hypertension ICD Codes: I10 - Hypertension Status: Chronic Plan: -Continue home medication of labetalol 100 mg p.o. twice daily (7) Dizziness ICD Codes: R42 - Dizziness and giddiness Status: Chronic Plan: -Continue home medication of meclizine as needed (8) Nutrition, metabolism, and development symptoms ICD Codes: R63.8 - Other symptoms and signs concerning food and fluid intake Plan: Fluids: tolerating PO Electrolyte: Monitor and replete PRN Nutrition: Advance diet as tolerated (Marcial Middleton MD R1) Problem Qualifiers (1) Closed right hip fracture: Qualified Codes: S72.001D - Fracture of unspecified part of neck of right femur , subsequent encounter for closed fracture with routine healing (2) COPD (chronic obstructive pulmonary disease): Qualified Codes: J44.9 - Chronic obstructive pulmonary disease, unspecified (3) Hypertension: Qualified Codes: I10 - Essential (primary) hypertension Marcial Middleton MD R1 Sep 18, 2017 09:08 Judy Oconnor MD Sep 18, 2017 17:38
--- NOTE | 2017-09-18 09:09 | HHI.DS ---
Discharge Summary Admission Date September 15, 2017 at 13:46 Admitting Diagnosis Right hip fracture (1) Closed right hip fracture Diagnosis: Principal Plan: Orthopedic surgery consulted- s/p right hip hemiarthroplasty on 09/16/[address] Hamilton - Lovenox 30mg SQ Q24H -[place] for pain 1-5, morphine for pain 6-10, morphine for breakthrough pain -Monitor vital signs ICD Codes: S72.001A - Fracture of unspecified part of neck of right femur, initial encounter for closed fracture Status: Resolved (2) Urinary retention Diagnosis: Secondary Plan: Urology consult appreciated: -Successful Peterson catheter placement after positioning left LE up with nursing assistance and urethral dilation up to 16Fr using urethral sounds -Peterson catheter with clear urine return, over 900cc -Peterson catheter to remain in place. Patient to be discharged with catheter in place with Urology follow-up in 1-2 weeks for catheter removal and voiding trial ICD Codes: R33.9 - Retention of urine, unspecified (3) COPD with acute exacerbation Diagnosis: Secondary Plan: -Duo nebs every 4 hours -Albuterol neb every 2 hours as needed for shortness of breath -prednisone 40 mg p.o. daily x 5 days -Titrate oxygen as needed to keep pulse ox over 88% but under 94% -Monitor pulse ox ICD Codes: J44.1 - COPD with acute exacerbation Status: Acute (4) Macrocytic anemia Diagnosis: Secondary Plan: Chronic per chart review - B12 wnl, folate elevated >20 ICD Codes: D53.9 - Nutritional anemia, unspecified Status: Chronic (5) COPD (chronic obstructive pulmonary disease) Diagnosis: Secondary Plan: -Continue home medication of budesonide/Pulmicort every 12 hours ICD Codes: J44.9 - Chronic obstructive pulmonary disease, unspecified Status: Chronic (6) Hypertension Diagnosis: Secondary Plan: -Continue home medication of labetalol 100 mg p.o. twice daily ICD Codes: I10 - Hypertension Status: Chronic (7) Dizziness Diagnosis: Secondary Plan: -Continue home medication of meclizine as needed ICD Codes: R42 - Dizziness and giddiness Status: Chronic (8) Nutrition, metabolism, and development symptoms Plan: Fluids: tolerating PO Electrolyte: Monitor and replete PRN Nutrition: Advance diet as tolerated ICD Codes: R63.8 - Other symptoms and signs concerning food and fluid intake Brief History Patient is a 82-year-old female with a past medical history of hypertension and COPD on home oxygen at 3 L/min and Mnire's disease who presented to the emergency department after a fall complaining of right hip pain. En route to the emergency department, EVAC gave her breathing treatments and steroids because she was not moving air well. In the emergency department, x-ray showed right hip fracture. This morning, patient was washing her hair and went to dry it off with a towel over her head and she had a mechanical fall. She denies any syncope, chest pain , shortness of breath, palpitations, racing heart, dizziness, presyncope, nausea , vomiting, diarrhea, orthostatic dizziness, tunnel vision, diaphoresis prior to the fall. She denies hitting her head. She denies any loss of consciousness. She fell on her right hip. She reports immediate right hip pain after the fall. She reports SOB all the time, dizziness with standing, walking all the time. CBC/BMP: 09/18/17 0416 09/18/17 0416 Significant Findings Laboratory Tests Test 09/15/17 12:15 09/16/17 13:40 09/17/17 04:06 09/18/17 04:16 Red Blood Count 3.47 MIL/MM3 (4.00-5.30) 3.21 MIL/MM3 (4.00-5.30) 3.20 MIL/MM3 (4.00-5.30) 2.97 MIL/MM3 (4.00-5.30) Hematocrit 34.9 % (35.0-46.0) 32.2 % (35.0-46.0) 31.8 % (35.0-46.0) 29.4 % (35.0-46.0) Mean Corpuscular Volume 100.6 FL (80.0-100.0) 100.1 FL (80.0-100.0) Neutrophils (%) (Auto) 76.3 % (16.0-70.0) 83.7 % (16.0-70.0) Activated Partial Thromboplast Time 22.4 SEC (24.3-30.1) Random Glucose 117 MG/DL (74-106) 114 MG/DL (74-106) 107 MG/DL (74-106) 132 MG/DL (74-106) Total Protein 6.3 GM/DL (6.4-8.2) Albumin 3.3 GM/DL (3.4-5.0) Carbon Dioxide Level 34.2 MEQ/L (21.0-32.0) 35.6 MEQ/L (21.0-32.0) 35.3 MEQ/L (21.0-32.0) 34.3 MEQ/L (21.0-32.0) Estimat Glomerular Filtration Rate 72 ML/MIN (>89) 69 ML/MIN (>89) 82 ML/MIN (>89) 85 ML/MIN (>89) Folate GREATER THAN 20.0 NG/ML White Blood Count 12.7 TH/MM3 (4.0-11.0) Hemoglobin 10.6 GM/DL (11.6-15.3) 10.8 GM/DL (11.6-15.3) 10.0 GM/DL (11.6-15.3) Lymphocytes (%) (Auto) 6.4 % (9.0-44.0) Monocytes (%) (Auto) 9.1 % (0.0-8.0) Neutrophils # (Auto) 10.6 TH/MM3 (1.8-7.7) Lymphocytes # (Auto) 0.8 TH/MM3 (1.0-4.8) Monocytes # (Auto) 1.2 TH/MM3 (0-0.9) Chloride Level 96 MEQ/L (98-107) 93 MEQ/L (98-107) 92 MEQ/L (98-107) Sodium Level 135 MEQ/L (136-145) 134 MEQ/L (136-145) Calcium Level 7.8 MG/DL (8.5-10.1) PE at Discharge GENERAL: Elderly female in no acute distress. SKIN: Warm and dry. HEAD: Normocephalic. EYES: No scleral icterus. No injection or drainage. NECK: Supple, trachea midline. No JVD or lymphadenopathy. CARDIOVASCULAR: Regular rate and rhythm without murmurs, gallops, or rubs. RESPIRATORY: Breath sounds equal bilaterally. No accessory muscle use. No wheezing, rhonchi, rales. GASTROINTESTINAL: Abdomen soft, non-tender, nondistended. MUSCULOSKELETAL: No cyanosis, or edema. Right leg in immobilizer brace. Pedal pulses intact. Motor and sensation and capillary refill intact distal to right hip injury. BACK: Nontender without obvious deformity. Hospital Course 82-year-old female who presented on 09/15/17 for a closed right hip fracture status post mechanical fall. Right hip hemiarthroplasty on 09/16/[address] Hamilton performed. While in hospital patient had urinary retention with several failed attempts at catheterization. Peterson catheter was placed by urology, advised to leave in for 1-2 weeks and follow-up outpatient with urology. Patient to follow-up with orthopedics in 2 weeks. No new acute complaints at time of discharge on 09/18/17. Pt Condition on Discharge: Stable Discharge Disposition: Discharge to SNF Discharge Instructions DIET: Follow Instructions for: As Tolerated, No Restrictions Activities you can perform: Weight Bearing as Floyd Follow up Referrals: Orthopedics - 2 Weeks @ [facility] with Gael Hamilton MD Urology - 1 Week New Medications: Calcium Carbonate-Vitamin D (Calcium 600+D 200) 600-200 Mg-Unit Tab 1 TAB PO BID for Nutritional Supplement, #60 TAB 0 Refills Cholecalciferol (Vitamin D3) 2,000 Unit Cap 2000 UNITS PO DAILY for Nutritional Supplement, #60 CAP 0 Refills Ergocalciferol (Ergocalciferol) 50,000 Unit Cap 81870 UNITS PO Q7D for Nutritional Supplement, #8 CAP Hydrocodone-Acetaminophen ([place]) 5 Mg-325 Mg Tab 1 TAB PO Q4H PRN for PAIN, #60 TAB 0 Refills Rivaroxaban (Xarelto) 10 Mg Tab 10 MG PO DAILY for Blood Clot Prevention, #14 TAB 0 Refills Walker/Adult/Folding (Walker/Adult/Folding) 1 Mis Mis EA .XX DIRECTED, #1 0 Refills Wheelchair (Wheelchair) 1 Mis Mis EA .XX DIRECTED, #1 0 Refills Continued Medications: Ascorbic Acid (Vitamin C) 1,000 Mg Tablet.er 1000 MG PO DAILY for Nutritional Supplement Aspirin DR (Aspirin Adult Low Strength) 81 Mg Tabdr 81 MG PO DAILY, TAB Budesonide Neb (Budesonide Neb) 0.5 Mg/2 Ml Neb 0.5 MG NEB Q12HR NEB for Breathing Treatment, #60 NEBULE 0 Refills Caffeine (Vivarin) 200 Mg Tab 200 MG PO DAILY PRN for ENERGY, TAB Calcium Carbonate-Vitamin D (Calcium 600+D) 600-400 Mg-Unit Tab 2 TAB PO BID, TAB Diphenhydramine HCl (Sleep) (Sleep Aid) Unknown Strength Tab 1 TAB PO HS Fluoxetine (Prozac) 20 Mg Cap 20 MG PO DAILY, #30 CAP 0 Refills Fluticasone Nasal [place] (Flonase Nasal Norton) 50 Mcg/Act [place] 2 SPR EACH NARE BID for Allergies, #1 BOTTLE 0 Refills Ipratropium-Albuterol Neb (Duoneb) 0.5-2.5 Mg/3 Ml Neb 3 ML NEB Q8HR for Breathing Treatment, #90 NEBULE 0 Refills Labetalol (Labetalol) 200 Mg Tab 100 MG PO BID for Blood Pressure Management, TAB 0 Refills Meclizine (Meclizine) 25 Mg Tab 25 MG PO TID PRN for VERTIGO, TAB 0 Refills Multiple Vitamin (Multiple Vitamin) 1 Tab 1 TAB PO DAILY for Nutritional Supplement, TAB 0 Refills Omeprazole Magnesium (Prilosec) 20 Mg Tab 20 MG PO BID Take 1 tablet in the am and noon Marcial Middleton MD R1 Sep 18, 2017 09:09
--- NOTE | 2017-09-18 09:10 | HHI.DCPOC ---
Discharge Care Plan Diagnosis: (1) COPD (chronic obstructive pulmonary disease) (2) Hypertension (3) Closed right hip fracture (4) Urinary retention Goals to Promote Your Health * To prevent worsening of your condition and complications * To maintain your health at the optimal level Directions to Meet Your Goals Take your medications as prescribed Follow your dietary instruction Follow activity as directed Keep your appointments as scheduled Take your immunizations and boosters as scheduled If your symptoms worsen call your PCP, if no PCP go to Urgent Care Center or Emergency Room Smoking is Dangerous to Your Health. Avoid second hand smoke Call the 24-hour hour crisis hotline for domestic abuse at Marcial Middleton MD R1 Sep 18, 2017 09:10
[2017-09-18] MEDS: PANTOPRAZOLE SOD 20 MG DELAYED RELEASE TAB PO SCH (09:26)
[2017-09-18] MEDS: LABETALOL HCL 100 MG TAB PO SCH (09:26)
[2017-09-18] MEDS: predniSONE 20 MG TAB PO SCH (09:26)
[2017-09-18] MEDS: ASCORBIC ACID 500 MG TAB PO SCH (09:27)
[2017-09-18] MEDS: MULTIVITAMIN TAB PO SCH (09:27)
[2017-09-18] MEDS: ENOXAPARIN SODIUM 30 MG/0.3 ML SYRINGE SQ SCH (09:27)
[2017-09-18] MEDS: CHOLECALCIFEROL (VIT D3) 5000 UNIT CAP PO SCH (09:27)
[2017-09-18] MEDS: DOCUSATE SODIUM 100 MG CAP PO SCH (09:27)
[2017-09-18] MEDS: CALCIUM/VITAMIN D 250 MG/125 U TAB PO SCH (09:27)
[2017-09-18] MEDS: RESP: BUDESONIDE 0.5 MG/2 ML NEB NEB SCH (09:47)
[2017-09-18 09:50] VITALS: O2SAT 98
[2017-09-18 12:00] VITALS: BP 104/58; PULSE 99; RESP 18; TEMP 98; O2SAT 98
[2017-09-18] MEDS ORDERED: BISACODYL 10 MG SUPP RECTAL ONE (12:45)
[2017-09-18] MEDS ORDERED: LACTULOSE SYRUP 20 GM/30 ML CUP PO ONE (12:45)
== END 2017-09-18 16:18 | DRG 470 ==
LOC: NEPC 11:40 → NEDA 13:46 → N06A 15:17
PROVIDERS: ADMIT Family Medicine; ATTEND Family Medicine
PROC: 0T7D7ZZ Dilation of Urethra, Via Natural or Artificial Opening (ICD-10-PCS; 2017-09-16)
PROC: 0T9B70Z Drainage of Bladder with Drainage Device, Via Natural or Artificial Opening (ICD-10-PCS; 2017-09-16)
PROC: 0SRR0JZ Replacement of Right Hip Joint, Femoral Surface with Synthetic Substitute, Open Approach (ICD-10-PCS; principal; 2017-09-16 09:12)
DX: S72.011A Unspecified intracapsular fracture of right femur, initial encounter for closed fracture (principal); J44.1 Chronic obstructive pulmonary disease with (acute) exacerbation; Z99.81 Dependence on supplemental oxygen; R09.02 Hypoxemia; I10 Essential (primary) hypertension; M19.90 Unspecified osteoarthritis, unspecified site; E86.0 Dehydration; D53.9 Nutritional anemia, unspecified; M81.0 Age-related osteoporosis without current pathological fracture; R33.9 Retention of urine, unspecified; H81.09 Meniere's disease, unspecified ear; N35.9 Urethral stricture, unspecified; F17.210 Nicotine dependence, cigarettes, uncomplicated; F32.9 Major depressive disorder, single episode, unspecified; F41.9 Anxiety disorder, unspecified; W01.0XXA Fall on same level from slipping, tripping and stumbling without subsequent striking against object, initial encounter; Y92.009 Unspecified place in unspecified non-institutional (private) residence as the place of occurrence of the external cause; Z66 Do not resuscitate
CPT/HCPCS: 70450; 71045; 72170; 73502; 73552; 80048; 80053; 82306; 82607; 82746; 85025; 85027; 85610; 85730; 86850; 86900; 86901; 93005; 94150; 94640; 94664; 99285; C1776; J0690; J1580; J1650; J2370; J2405; J3370; J7120; J7512; J7626; L1830